=== PATIENT | female | born 1995 | race Caucasian/White ===

== ENCOUNTER 2020-07-02 09:22 | Outpatient (REF) | payer MEDICAID, SELFPAY ==
--- NOTE | 2020-07-02 09:15 | EMG_ITS ---
Right median and ulnar motor and sensory studies were performed. Right radial sensory study was performed and paraspinal muscles were tested. IMPRESSION: [id number] right median neuropathy across carpal tunnel. MD KRYSTLE Kwong/LATRICE / [id number]
== END 2020-07-02 09:23 | disposition home or self-care (01) ==
LOC: HO.NEURO 09:22
PROVIDERS: Visit Provider Internal Medicine
DX: M79.601 Pain in right arm (principal)
CPT/HCPCS: 95860; 95886; 95909

== ENCOUNTER → 2020-07-22 10:16 | Outpatient (BNVA) | payer OTHER, MEDICAID, SELFPAY | PROVIDERS: Visit Provider Orthopaedic Surgery ==

== ENCOUNTER 2020-07-30 09:03 | Day surgery (SDC) | payer MEDICAID, SELFPAY ==
[2020-07-29 09:48] VITALS: BMI 30.9
[2020-07-30] MEDS: Lidocaine HCl 2%/Epi 1:100,000 20 ML VIAL 10 ML INFILTRATI (10:44)
[2020-07-30 10:50] VITALS: BP 104/69; PULSE 74; RESP 16; TEMP 36.3; O2SAT 99
[2020-07-30 10:51] LABS: UPreg QC Valid YES; Urine Pregnancy NEGATIVE (NEGATIVE)
[2020-07-30 12:30] VITALS: BP 113/71; PULSE 76; RESP 16; TEMP 36.7; O2SAT 98
--- NOTE | 2020-07-30 12:33 | MHC.SHP ---
Pre-Procedural Eval Section B Chief Complaint: carpal tunnel syndrome,right Allergies: Allergies Allergy/AdvReac Type Severity Reaction Status Date / Time amoxicillin [AMOXICILLIN] Allergy Unknown RASH Verified 07/30/20 10:15 naproxen [NAPROXEN] Allergy Unknown FACIAL Verified 07/30/20 10:15 SWELLING prednisolone Allergy Unknown Unknown Verified 07/30/20 10:15 prednisone [PREDNISONE] Allergy Unknown HIVES Verified 07/30/20 10:15 Plan I have reviewed the history and physical and performed a pertinent physical examination on my patient. No changes have occurred unless specified.
--- NOTE | 2020-07-30 12:33 | W.PM.OPN ---
Operative Note Operative Note Date of Service: 07/30/20 Narrative: Preop diagnosis: 1. Right Carpal tunnel syndrome Postop diagnosis: 1. Right Carpal tunnel syndrome Procedure: 1. Right Carpal tunnel release Surgeon: Trisha Rubio MD Anesthesia: local block using 1% lidocaine with epinephrine Findings: Thickened transverse carpal ligament. EBL: Less than 5 mL Specimens: None Complications: None Disposition: Brought to recovery room in stable condition Plan: Follow-up for 7-10 days for wound check and suture removal Indications: The patient is 24 years old, with right carpal tunnel syndrome that has been unresponsive to nonoperative management. The risks and benefits of operative treatment including but not limited to risk of damage to blood vessels, nerves, tendons, infection, persistent pain, persistent symptoms, or possible need for additional surgery were discussed with the patient and the patient wishes to proceed with surgery. Procedure: Once consent was obtained a local block was performed using a combination of 1% lidocaine with epinephrine. The patient was then brought back to the operating suite and placed on the operative table in supine position. A tourniquet was applied to the proximal aspect of the right upper extremity and the limb was prepped and draped in a standard surgical fashion. Once assured that we had a good block, a 1.5 cm longitudinal incision was made centered over the right carpal tunnel. The incision was made through the skin to the subcutaneous tissues using a #15 blade. Dissection was made down to the level of the transverse carpal ligament with care being taken to protect the palmar cutaneous nerve. Once the transverse carpal ligament was clearly visualized, a longitudinal incision was made in the transverse carpal ligament 1st using a #15 blade, then using tenotomy scissors under direct visualization. Care was taken to look for and protect the motor branch of the median nerve when seen in this area. Once satisfied with our carpal tunnel release the wound was copiously irrigated with normal saline and hemostasis was obtained with a brief period of local pressure. The skin edges were reapproximated with some 5.0 nylon suture material and a sterile dressing was applied. The patient appears to have tolerated the procedure well and with no complications. All digits were well vascularized at the conclusion of the case.
== END 2020-07-30 13:00 | disposition home or self-care (01) ==
PROVIDERS: PCP Internal Medicine; Visit Provider Orthopaedic Surgery
PROC: (CPT 64721; principal; 2020-07-30 10:40)
DX: G56.01 Carpal tunnel syndrome, right upper limb (principal); J45.909 Unspecified asthma, uncomplicated; F31.9 Bipolar disorder, unspecified; Z88.1 Allergy status to other antibiotic agents; Z88.8 Allergy status to other drugs, medicaments and biological substances
CPT/HCPCS: 64721; 81025

== ENCOUNTER → 2020-08-12 10:17 | Outpatient (BNVA) | payer MEDICAID, SELFPAY | PROVIDERS: Visit Provider Orthopaedic Surgery | DX: G56.01 Carpal tunnel syndrome, right upper limb (principal) | CPT/HCPCS: 99212 ==

== ENCOUNTER 2020-10-19 07:33 | Emergency (ER) | payer MEDICAID, SELFPAY ==
--- NOTE | ~2020-10-19 | US_ITS ---
EXAMINATION: US PELVIS ULTRASOUND CLINICAL INFORMATION: Vaginal bleeding, lower quadrant pain. Age 24, LMP 3 weeks ago. COMPARISON: CT abdomen and pelvis with contrast 03/08/2018, pelvic ultrasound 06/10/2017 TECHNIQUE: Ultrasound of the pelvis is performed using both transabdominal and transvaginal transducers along with Doppler. Transvaginal imaging is performed due to inadequate visualization transabdominally. FINDINGS: Uterus: The uterus is anteverted and measures 5.9 x 3.2 x 3.6 cm. The double wall endometrial thickness is 2 mm. There is no fluid in uterine cavity. No intrauterine gestational sac. The uterine contours are smooth. No fibroid. No myometrial cyst. Adnexa: Both ovaries are visualized. There is no significant adnexal mass or pelvic ascites. There is normal bilateral adnexal color flow along with low resistance arterial waveforms and adnexal venous flow. No torsion. There is trace fluid cul-de-sac. No pelvic ascites. Right ovary measures 4.5 x 2.7 x 3.8 cm. There is a hemorrhagic cyst within the right ovary with lacelike internal stranding angiographic avascular echogenicity and overall size 3.2 x 1.9 x 2.7 cm. Left ovary measures 3.2 x 2.1 x 2.7 cm. US/US transvaginal IMPRESSION: 1. Uterus: Unremarkable. 2. Adnexa: Right intraovarian hemorrhagic cyst 3.2 x 1.9 x 2.7 cm. Trace pelvic fluid. No torsion. Unremarkable left ovary.
--- NOTE | ~2020-10-19 | US_ITS ---
EXAMINATION: US PELVIS ULTRASOUND CLINICAL INFORMATION: Vaginal bleeding, lower quadrant pain. Age 24, LMP 3 weeks ago. COMPARISON: CT abdomen and pelvis with contrast 03/08/2018, pelvic ultrasound 06/10/2017 TECHNIQUE: Ultrasound of the pelvis is performed using both transabdominal and transvaginal transducers along with Doppler. Transvaginal imaging is performed due to inadequate visualization transabdominally. FINDINGS: Uterus: The uterus is anteverted and measures 5.9 x 3.2 x 3.6 cm. The double wall endometrial thickness is 2 mm. There is no fluid in uterine cavity. No intrauterine gestational sac. The uterine contours are smooth. No fibroid. No myometrial cyst. Adnexa: Both ovaries are visualized. There is no significant adnexal mass or pelvic ascites. There is normal bilateral adnexal color flow along with low resistance arterial waveforms and adnexal venous flow. No torsion. There is trace fluid cul-de-sac. No pelvic ascites. Right ovary measures 4.5 x 2.7 x 3.8 cm. There is a hemorrhagic cyst within the right ovary with lacelike internal stranding angiographic avascular echogenicity and overall size 3.2 x 1.9 x 2.7 cm. Left ovary measures 3.2 x 2.1 x 2.7 cm. US/US pelvic ovarian doppler IMPRESSION: 1. Uterus: Unremarkable. 2. Adnexa: Right intraovarian hemorrhagic cyst 3.2 x 1.9 x 2.7 cm. Trace pelvic fluid. No torsion. Unremarkable left ovary.
--- NOTE | ~2020-10-19 | US_ITS ---
EXAMINATION: US PELVIS ULTRASOUND CLINICAL INFORMATION: Vaginal bleeding, lower quadrant pain. Age 24, LMP 3 weeks ago. COMPARISON: CT abdomen and pelvis with contrast 03/08/2018, pelvic ultrasound 06/10/2017 TECHNIQUE: Ultrasound of the pelvis is performed using both transabdominal and transvaginal transducers along with Doppler. Transvaginal imaging is performed due to inadequate visualization transabdominally. FINDINGS: Uterus: The uterus is anteverted and measures 5.9 x 3.2 x 3.6 cm. The double wall endometrial thickness is 2 mm. There is no fluid in uterine cavity. No intrauterine gestational sac. The uterine contours are smooth. No fibroid. No myometrial cyst. Adnexa: Both ovaries are visualized. There is no significant adnexal mass or pelvic ascites. There is normal bilateral adnexal color flow along with low resistance arterial waveforms and adnexal venous flow. No torsion. There is trace fluid cul-de-sac. No pelvic ascites. Right ovary measures 4.5 x 2.7 x 3.8 cm. There is a hemorrhagic cyst within the right ovary with lacelike internal stranding angiographic avascular echogenicity and overall size 3.2 x 1.9 x 2.7 cm. Left ovary measures 3.2 x 2.1 x 2.7 cm. US/US pelvic complete IMPRESSION: 1. Uterus: Unremarkable. 2. Adnexa: Right intraovarian hemorrhagic cyst 3.2 x 1.9 x 2.7 cm. Trace pelvic fluid. No torsion. Unremarkable left ovary.
[2020-10-19 07:36] VITALS: BP 131/68; PULSE 76; RESP 17; TEMP 36.6; O2SAT 99; BMI 25.4
--- NOTE | 2020-10-19 08:37 | ED.FEMALEGU ---
HPI - Female Genitourinary General Chief complaint: Vaginal Bleeding Stated complaint: vag bleed Time Seen by Provider: 10/19/20 08:06 Source: patient Mode of arrival: ambulatory History of Present Illness HPI Narrative: 24-year-old female presenting to the ED complaining of lower abdominal discomfort and dark vaginal bleeding since yesterday. Reports went to PCP few days ago and had negative urine . LMP 3 weeks ago. Also reports clotting, mild associated lightheadedness, admits to using about 9 tampons since last night. Denies nausea, vomiting, diarrhea, dysuria/hematuria, rectal bleeding, vaginal discharge. Is sexually active with 1 partner MD elicited complaint: vaginal bleeding Related Data Previous Rx's Medication Instructions Recorded hydrocodone-acetaminophen 1 tab PO Q4-6H PRN #5 tab 07/30/20 Allergies Allergy/AdvReac Type Severity Reaction Status Date / Time amoxicillin [AMOXICILLIN] Allergy Unknown RASH Verified 08/12/20 11:12 naproxen [NAPROXEN] Allergy Unknown FACIAL Verified 08/12/20 11:12 SWELLING prednisolone Allergy Unknown Unknown Verified 08/12/20 11:12 prednisone [PREDNISONE] Allergy Unknown HIVES Verified 08/12/20 11:12 Review of Systems Review of Systems: Constitutional: No Fever, No Chills Cardiovascular: No Chest Pain, No SOB Respiratory: No Cough, No Dyspnea Gastrointestinal: No Nausea, No Vomiting, No Diarrhea, No Constipation, + Abdominal pain Genitourinary: + irregular bleeding, No Dysuria, No Hematuria, No Flank Pain, no vaginal discharge Musculoskeletal: No joint pain, No Myalgias Skin: No Skin Lesions, No rash Neuro: No Weakness, No Numbness, + lightheadedness, No Headache Yes all other systems are reviewed and are negative [facility] Past Medical History Attestation statement: The following information was validated with the patient. Medical History (Updated 10/19/20 @ 11:45 by ALLEN Vasquez) Anxiety Asthma Bipolar 1 disorder PCOS (polycystic ovarian syndrome) Surgical History (Updated 08/12/20 @ 11:13 by ERWIN Dominguez) History of carpal tunnel release Family History Family History Father No problems noted. Mother No problems noted. Social History Social History (Reviewed 08/12/20 @ 11:12 by MARIAELENA Dominguez Alcohol intake: never Smoking Status: Never smoker Advance Directives: No Advance Directives Information Provided: No Current occupational status: unemployed Current occupation: right handed Physical Exam Vital Signs: Vital Signs: Last Vital Signs Temp 98.3 F 10/19/20 11:20 Pulse 70 10/19/20 11:20 Resp 18 10/19/20 11:20 BP 108/71 10/19/20 11:20 Pulse Ox 74 L 10/19/20 11:20 Body Mass Index 25.4 Const: General: cooperative, healthy appearing and comfortable Orientation/consciousness: patient oriented x3 Limitations: no limitations HENMT: Head: Yes normal to inspection Ears: hearing grossly normal bilaterally General nose exam: Normal external nose present Face and sinus: Yes normal facial exam Eyes: General: appearance normal, both eyes and all related structures EOM: EOMs intact bilaterally Neck: Neck: Yes normal visual inspection and Yes no meningeal signs Resp: Effort & Inspection: normal respiratory effort Cardio: Rate: regular rate GI: Inspection: Yes normal to inspection Palpation (GI): Soft to palpation, Tenderness to palpation present (GI) in the LLQ and suprapubicly, no guarding and not rigid : General: Yes no CVA tenderness Speculum Exam - Vagina: vaginal bleeding Speculum Exam - Cervix: Cervical os closed Bimanual exam- vagina & uterus: no cervical motion tenderness Bimanual Exam- Adnexa, other: tender (With adnexal fullness) on the right OB/external & speculum: vaginal bleeding Back/Spine/Pelvis: Back: no CVA tenderness Skin: Rashes: no rashes Wounds: no wounds Neuro: General: patient oriented x3 and no meningeal signs Gait exam (Neuro): Normal gait present Extrem: General: Yes normal to inspection Course Course Course Narrative: -no leukocytosis. H&H stable, UA with 1+ blood, U- negative US pelvic complete IMPRESSION: 1. Uterus: Unremarkable. 2. Adnexa: Right intraovarian hemorrhagic cyst 3.2 x 1.9 x 2.7 cm. Trace pelvic fluid. No torsion. Unremarkable left ovary. -1140--labs otherwise unremarkable, beta quant negative > discussed with patient including worrisome signs and symptoms and strict return precautions including close follow-up with OBGYN. She verbalized understanding feel safe for discharge home MDM - Female Genitourinary MDM Narrative Medical decision making narrative: 24-year-old female presenting to the ED complaining of lower abdominal discomfort and dark vaginal bleeding since yesterday. On exam VSS, in ED/nontoxic appearing, abdomen soft with LLQ/suprapubic tenderness to palpation, on pelvic exam mild vaginal bleeding noted without active hemorrhage and +right adnexal ttp. No CMT or apprecable masses. Concern for ovarian cyst/torsion vs ectopic vs TOA. Rule out STI. Lower concern for appendicitis or diverticulitis with other co-founding symptoms. Plan: Labs, UA, STI testing, pelvis ultrasound, reassess Lab Data Result diagrams: 10/19/20 08:54 10/19/20 10:48 Labs: Lab Results 10/19/20 10/19/20 10/19/20 Range/Units 08:54 08:54 08:54 WBC 9.0 (4.8-10.8) X10*3/uL RBC 4.38 (4.20-5.50) X10*6/uL Hgb 13.4 (12.0-16.0) g/dl Hct 40.2 (37-47) % MCV 91.8 (80-98) fL MCH 30.6 (27.0-33.0) pg MCHC 33.3 (31.0-35.0) g/dl RDW 12.4 (11.0-16.0) % Plt Count 253 (160-400) X10*3/uL MPV 11.5 (9.4-12.3) fL Immature Gran % (Auto) 0.2 (0.0-0.4) % Neut % (Auto) 71.4 (45-73) % Lymph % (Auto) 20.0 (20-40) % [place] % (Auto) 6.4 (2-11) % Eos % (Auto) 1.3 (0-4) % Baso % (Auto) 0.7 (0-2) % Lymph # (Auto) 1.8 (1.2-4.9) X10*3/uL [place] # (Auto) 0.6 (0.1-1.2) X10*3/uL Eos # (Auto) 0.1 (0.0-0.4) X10*3/uL Baso # (Auto) 0.1 (0.0-0.2) X10*3/uL Abs Immat Gran (auto) 0.02 (0.00-0.03) X10*3/uL Absolute Neuts (auto) 6.4 (2.0-8.3) X10*3/uL Absolute Nucleated RBC 0.000 (0.0-0.012) X10*3/uL Nucleated RBC % (auto) 0.0 (0.0-0.2) /100WBC PT 12.5 (10.8-13.0) SEC INR 1.1 (0.9-1.1) APTT 33.9 (24.1-38.0) SEC Sodium (135-145) mmol/L Potassium (3.3-5.1) mmol/L Chloride (96-108) mmol/L Carbon Dioxide (22-29) mmol/L Anion Gap (12-20) BUN (9-16) mg/dL Creatinine (0.5-1.4) mg/dL Estim Creat Clear Calc Estimated GFR Random Glucose (60-115) mg/dL Calcium (8.4-10.2) mg/dL Magnesium (1.6-2.6) mg/dL Total Bilirubin (0.0-1.0) mg/dL Direct Bilirubin (0.0-0.5) mg/dL AST (5-31) U/L ALT (0-31) U/L Alkaline Phosphatase (39-117) U/L Total Protein (6.5-8.0) g/dL Albumin (3.5-5.0) g/dL Lipase (8-78) U/L Beta HCG, Quant mIU/mL Urine Color YELLOW Urine Appearance CLEAR Urine pH 7.0 (5.0-8.0) Ur Specific [place] 1.015 (1.005-1.025) Urine Protein NEG (NEG-TRACE) MG/DL Urine Glucose (UA) NEG (NEG) MG/DL Urine Ketones NEG (NEG) MG/DL Urine Blood 1+ H (NEG) Urine Nitrite NEG (NEG) Ur Leukocyte Esterase NEG (NEG) Urine RBC 0-2 (0) /HPF Urine WBC 0-2 (0-4) /HPF Ur Squamous Epith Cells TRACE /LPF Ur Renal Epithelial Cell TRACE /LPF Urine Bacteria NONE /LPF Urine Test (NEGATIVE) 10/19/20 10/19/20 Range/Units 08:54 10:48 WBC (4.8-10.8) X10*3/uL RBC (4.20-5.50) X10*6/uL Hgb (12.0-16.0) g/dl Hct (37-47) % MCV (80-98) fL MCH (27.0-33.0) pg MCHC (31.0-35.0) g/dl RDW (11.0-16.0) % Plt Count (160-400) X10*3/uL MPV (9.4-12.3) fL Immature Gran % (Auto) (0.0-0.4) % Neut % (Auto) (45-73) % Lymph % (Auto) (20-40) % [place] % (Auto) (2-11) % Eos % (Auto) (0-4) % Baso % (Auto) (0-2) % Lymph # (Auto) (1.2-4.9) X10*3/uL [place] # (Auto) (0.1-1.2) X10*3/uL Eos # (Auto) (0.0-0.4) X10*3/uL Baso # (Auto) (0.0-0.2) X10*3/uL Abs Immat Gran (auto) (0.00-0.03) X10*3/uL Absolute Neuts (auto) (2.0-8.3) X10*3/uL Absolute Nucleated RBC (0.0-0.012) X10*3/uL Nucleated RBC % (auto) (0.0-0.2) /100WBC PT (10.8-13.0) SEC INR (0.9-1.1) APTT (24.1-38.0) SEC Sodium 142 (135-145) mmol/L Potassium 4.5 (3.3-5.1) mmol/L Chloride 110 H (96-108) mmol/L Carbon Dioxide 26 (22-29) mmol/L Anion Gap 11 L (12-20) BUN 9 (9-16) mg/dL Creatinine 0.75 (0.5-1.4) mg/dL Estim Creat Clear Calc 91.3 Estimated GFR > 60 Random Glucose 96 (60-115) mg/dL Calcium 8.8 (8.4-10.2) mg/dL Magnesium 2.0 (1.6-2.6) mg/dL Total Bilirubin 1.2 H (0.0-1.0) mg/dL Direct Bilirubin 0.3 (0.0-0.5) mg/dL AST 16 (5-31) U/L ALT 13 (0-31) U/L Alkaline Phosphatase 63 (39-117) U/L Total Protein 6.3 L (6.5-8.0) g/dL Albumin 4.1 (3.5-5.0) g/dL Lipase 14 (8-78) U/L Beta HCG, Quant < 2 mIU/mL Urine Color Urine Appearance Urine pH (5.0-8.0) Ur Specific [place] (1.005-1.025) Urine Protein (NEG-TRACE) MG/DL Urine Glucose (UA) (NEG) MG/DL Urine Ketones (NEG) MG/DL Urine Blood (NEG) Urine Nitrite (NEG) Ur Leukocyte Esterase (NEG) Urine RBC (0) /HPF Urine WBC (0-4) /HPF Ur Squamous Epith Cells /LPF Ur Renal Epithelial Cell /LPF Urine Bacteria /LPF Urine Test NEGATIVE (NEGATIVE) Discharge Plan Discharge Clinical Impression: Hemorrhagic cyst of right ovary Patient Disposition: Home, Self-Care Instructions: Ovarian Cyst (ED) Additional Instructions: Your ultrasound shows a right intra ovarian hemorrhagic cyst this is likely causing her symptoms You need to follow-up with OBGYN If your bleeding persists or worsens, abdominal pain persists or becomes unbearable, you develop fever, or persistent nausea/vomiting return to the ED immediately Prescriptions: No Action hydrocodone-acetaminophen 5-325 mg tablet 1 tab PO Q4-6H PRN (Reason: pain) Qty: 5 RF: 0 Referrals: Geovany Haney MD [Physician] - 2 days
[2020-10-19 09:04] LABS: MANUAL DIFF FLAG NO
[2020-10-19 09:06] LABS: Basophils Absolute Auto 0.1 X10*3/uL (0.0-0.2); Basophils Percent Auto 0.7 % (0-2); Eosinophils Absolute Auto 0.1 X10*3/uL (0.0-0.4); Eosinophils Percent Auto 1.3 % (0-4); Hematocrit 40.2 % (37-47); Hemoglobin 13.4 g/dl (12.0-16.0); Imm Gran Abs Auto 0.02 X10*3/uL (0.00-0.03); Imm Gran Pct Auto 0.2 % (0.0-0.4); Lymphocytes Absolute Auto 1.8 X10*3/uL (1.2-4.9); Mean Corpuscular HGB Conc 33.3 g/dl (31.0-35.0); Mean Corpuscular Hemoglobin 30.6 pg (27.0-33.0); Mean Corpuscular Volume 91.8 fL (80-98); Mean Platelet Volume 11.5 fL (9.4-12.3); Monocytes Absolute Auto 0.6 X10*3/uL (0.1-1.2); Monocytes Percent Auto 6.4 % (2-11); Neutrophils Absolute Auto 6.4 X10*3/uL (2.0-8.3); Neutrophils Percent Auto 71.4 % (45-73); Platelet Count 253 X10*3/uL (160-400); Red Blood Count 4.38 X10*6/uL (4.20-5.50); Red Cell Distribution Width 12.4 % (11.0-16.0)
[2020-10-19 09:10] LABS: Glucose Urine UA NEG (NEG); Leukocyte Esterase Urine NEG (NEG); Nitrite Urine NEG (NEG); Specific Gravity - Urine 1.015 (1.005-1.025); Urine Blood 1+ (NEG); Urine Ketones NEG (NEG); Urine Protein NEG (NEG-TRACE)
[2020-10-19 09:12] LABS: Appearance Urine CLEAR; Color Urine YELLOW; INTERNATIONAL NORM RATIO 1.1 (0.9-1.1); Prothrombin Time 12.5 SEC (10.8-13.0); UPreg QC Valid YES; Urine Pregnancy NEGATIVE (NEGATIVE)
[2020-10-19 09:14] LABS: Partial Thromboplastin Time 33.9 SEC (24.1-38.0)
[2020-10-19 09:17] LABS: RBC Urine 0-2 /HPF (0); Renal Epithelial Cells Urine TRACE /LPF; Squamous Epithelial Cell Urine TRACE /LPF; WBC Urine 0-2 /HPF (0-4)
[2020-10-19] MEDS: 0.9 % Sodium Chloride 1,000 ML 999 ML IVCONT (09:54)
[2020-10-19 10:44] VITALS: BP 121/88; PULSE 68; RESP 18; O2SAT 100
[2020-10-19 11:20] VITALS: BP 108/71; PULSE 70; RESP 18; TEMP 36.8; O2SAT 74
[2020-10-19] MEDS: Acetaminophen 325 MG TABLET 650 MG PO (11:24)
[2020-10-19 11:28] LABS: Alanine Aminotransferase 13 U/L (0-31); Albumin Level 4.1 g/dL (3.5-5.0); Alkaline Phosphatase 63 U/L (39-117); Anion Gap 11 (12-20); Aspartate Amino Transferase 16 U/L (5-31); Bilirubin Direct 0.3 mg/dL (0.0-0.5); Bilirubin Total 1.2 mg/dL (0.0-1.0); Blood Urea Nitrogen 9 mg/dL (9-16); Calcium 8.8 mg/dL (8.4-10.2); Carbon Dioxide 26 mmol/L (22-29); Chloride 110 mmol/L (96-108); Creatinine Clr Calc Pharmacy 91.3; Estimated Glomerular Filt Rate > 60; Glucose Random 96 mg/dL (60-115); Lipase 14 U/L (8-78); Potassium 4.5 mmol/L (3.3-5.1); Sodium 142 mmol/L (135-145); Total Protein 6.3 g/dL (6.5-8.0)
[2020-10-19 11:31] LABS: HCG Quantitative < 2 mIU/mL
[2020-10-19 12:38] LABS: CT PCR NOT DETECTED (Not Detect.); NG PCR NOT DETECTED (Not Detect.)
[2020-10-20 08:18] LABS: BV Int Neg Control Negative (Negative); BV Int Pos Control Positive (Positive)
== END 2020-10-19 11:55 | disposition home or self-care (01) ==
PROVIDERS: Physician Assistant; Emergency Provider Emergency Medicine
DX: N92.0 Excessive and frequent menstruation with regular cycle (principal); N83.8 Other noninflammatory disorders of ovary, fallopian tube and broad ligament; Z79.899 Other long term (current) drug therapy
CPT/HCPCS: 36415; 76830; 76856; 80048; 80076; 81001; 81025; 83690; 83735; 84702; 85025; 85610; 85730; 87480; 87491; 87510; 87591; 87660; 93975; 96360; 99284

== ENCOUNTER 2021-12-29 10:50 | Outpatient (REF) | payer MEDICAID, SELFPAY ==
--- NOTE | ~2021-12-29 | XR_ITS ---
EXAMINATION: XR KNEE, RIGHT CLINICAL INFORMATION: Right knee pain x8 days after fall COMPARISON: None TECHNIQUE: 3 views of the right knee. FINDINGS: Bones and soft tissues are normal. No fracture or joint effusion. Alignment is anatomic. Joint spaces are well maintained. No abnormal soft tissue calcification. XR/XR knee RT 2V IMPRESSION: Unremarkable right knee.
== END 2021-12-29 10:51 | disposition home or self-care (01) ==
LOC: HO.XRAY 10:50
PROVIDERS: PCP Internal Medicine; Visit Provider Internal Medicine
DX: M25.561 Pain in right knee (principal)
CPT/HCPCS: 73560

== ENCOUNTER 2022-10-02 20:47 | Emergency (ER) | payer MEDICAID, SELFPAY ==
--- NOTE | ~2022-10-02 | CT_ITS ---
EXAMINATION: CT FACIAL BONES WITH CONTRAST CLINICAL INFORMATION: Mastoid tenderness COMPARISON: None available. TECHNIQUE: Multidetector CT imaging of the facial bones was performed after the administration of 85 mL Omnipaque 350 intravenous contrast. Coronal and sagittal reformats created on an independent workstation were reviewed. This CT examination was performed using dose optimization techniques as appropriate, variously including the following: *Automated exposure control *Adjustment of mA and/or kV according to patient size (this includes techniques or standardized protocols for targeted exams where dose is matched to indication/reason for exam; i.e. extremities or head) *Use of iterative reconstruction technique DLP: 410 mGy-cm FINDINGS: No abnormal soft tissue enhancement. No abscesses. Parotid and submandibular glands are symmetric. Parapharyngeal spaces are symmetric. The external auditory canals and periauricular soft tissues unremarkable. Unremarkable CT imaging appearance of the mastoids. Mastoid air cells and middle ear cavities are clear. Minimal mucosal thickening in the bilateral maxillary sinuses. Remaining paranasal sinuses are clear. Orbits and globes unremarkable. Mandible and temporomandibular joints are normal. No acute maxillofacial fractures are seen. CT/CT facial bones w IV con IMPRESSION: * No etiology for the patient's mastoid tenderness is identified. * Unremarkable exam.
[2022-10-02 21:14] VITALS: BP 104/52; PULSE 82; RESP 16; TEMP 36.4; O2SAT 98; BMI 29.8
[2022-10-02 22:16] LABS: MANUAL DIFF FLAG NO
[2022-10-02 22:18] LABS: Basophils Absolute Auto 0.1 X10*3/uL (0.0-0.2); Eosinophils Absolute Auto 0.2 X10*3/uL (0.0-0.4); Eosinophils Percent Auto 3.3 % (0-4); Hematocrit 39.1 % (37.0-47.0); Hemoglobin 13.5 g/dl (12.0-16.0); Imm Gran Abs Auto 0.02 X10*3/uL (0.00-0.03); Imm Gran Pct Auto 0.3 % (0.0-0.4); Lymphocytes Absolute Auto 2.8 X10*3/uL (1.2-4.9); Lymphocytes Percent Auto 39.1 % (20-40); Mean Corpuscular HGB Conc 34.5 g/dl (31.0-35.0); Mean Corpuscular Hemoglobin 30.7 pg (27.0-33.0); Mean Corpuscular Volume 88.9 fL (80.0-98.0); Mean Platelet Volume 10.6 fL (9.4-12.3); Monocytes Absolute Auto 0.6 X10*3/uL (0.1-1.2); Monocytes Percent Auto 8.8 % (2-11); Neutrophils Absolute Auto 3.4 x10*3/uL (2.0-8.3); Neutrophils Percent Auto 47.5 % (45-73); Platelet Count 245 X10*3/uL (160-400); White Blood Count 7.2 X10*3/uL (4.8-10.8)
[2022-10-02 22:27] LABS: Strep A Nucleic Acid Negative (Negative)
[2022-10-02 22:31] LABS: COVID-19 Test Negative (Negative); IDNOW Serial# 16C4AD1C
[2022-10-02 22:32] LABS: Alanine Aminotransferase 13 U/L (0-31); Albumin Level 4.1 g/dL (3.5-5.0); Alkaline Phosphatase 55 U/L (39-117); Anion Gap 13 (12-20); Aspartate Amino Transferase 17 U/L (5-31); Bilirubin Total 0.4 mg/dL (0.0-1.0); Blood Urea Nitrogen 12 mg/dL (9-16); Calcium 9.2 mg/dL (8.4-10.2); Carbon Dioxide 27 mmol/L (22-29); Chloride 107 mmol/L (96-108); Creatinine Clr Calc Pharmacy 84.9; Estimated Glomerular Filt Rate > 60; Glucose Random 103 mg/dL (60-115); Potassium 4.1 mmol/L (3.3-5.1); Sodium 143 mmol/L (135-145); Total Protein 6.3 g/dL (6.5-8.0)
[2022-10-02 22:42] LABS: Influenza A Negative (Negative); Influenza B2 Negative (Negative)
--- NOTE | 2022-10-02 23:10 | ED_ITS ---
HPI - URI/Sore Throat General Chief Complaint: Ear Problems Stated Complaint: migraine, cough, unable to hear, covid swab Time Seen by Provider: 10/02/22 23:06 Source: patient Mode of arrival: ambulatory Limitations: no limitations History of Present Illness HPI Narrative: 26-year-old female presents with 1 week of fevers, nausea, headache, severe left ear pain, and upper respiratory symptoms. MD elicited complaint: fever, cough, sore throat, nasal congestion and other (Ear pain) Onset (ago): week(s) (1) Consistency: constant and progressively worsening Severity: severe Pain scale (0-10): 9 Description of mucous: clear and watery Able to tolerate fluids by mouth: Yes Exacerbating factors: swallowing, speaking and changing head position Relieving factors: nothing Associated symptoms: fever, chills, myalgias, headache, rhinorrhea, nasal congestion, sore throat, cough, nausea and ear pain Treatments prior to arrival: acetaminophen, ibuprofen and cold medicine Related Data Previous Rx's Medication Instructions Recorded hydrocodone 5 mg-acetaminophen 325 1 tab PO Q4-6H PRN pain #5 tabs 07/30/20 mg tablet azithromycin 500 mg tablet 500 mg PO DAILY 4 days #4 tabs 10/03/22 benzonatate 100 mg capsule 100 mg PO TID PRN cough #20 caps 10/03/22 doxycycline monohydrate 100 mg 100 mg PO BID 7 days #14 caps 10/03/22 capsule ondansetron 4 mg disintegrating 4 mg PO Q8H PRN nausea and 10/03/22 tablet vomiting #20 tabs Allergies Allergy/AdvReac Type Severity Reaction Status Date / Time amoxicillin [AMOXICILLIN] Allergy Unknown RASH Verified 10/02/22 21:17 naproxen [NAPROXEN] Allergy Unknown FACIAL Verified 10/02/22 21:17 SWELLING prednisolone Allergy Unknown Unknown Verified 10/02/22 21:17 prednisone [PREDNISONE] Allergy Unknown HIVES Verified 10/02/22 21:17 Review of Systems Review of Systems: Constitutional: Positive Fever, positive Chills ENT/Mouth: Positive Ear Pain, No Hoarseness, positive sore throat Eyes: No Eye Pain, No Swelling, No Redness, No Foreign Body Cardiovascular: No Chest Pain, No SOB Respiratory: Positive Cough, No Dyspnea Gastrointestinal: Positive Nausea, No Vomiting, No Diarrhea, No abdominal Pain Genitourinary: No Dysuria, No Hematuria Musculoskeletal: No joint pain, No Myalgias, No Joint Swelling Skin: No Skin lacerations, No rash Neuro: No Weakness, No Numbness, No Paresthesias, No Loss of Consciousness, No Dizziness, positive Headache Yes all other systems are reviewed and are negative [facility] Past Medical History Attestation statement: The following information was validated with the patient. Source: old records reviewed Medical History Anxiety Asthma Bipolar 1 disorder PCOS (polycystic ovarian syndrome) Surgical History History of carpal tunnel release Family History Family History Father No problems noted. Mother No problems noted. Social History Social History Alcohol intake: never Advance Directives: No Advance Directives Information Provided: No Current occupational status: unemployed Current occupation: right handed Physical Exam Vital Signs: Vital Signs: Last Vital Signs Temp 97.5 F 10/02/22 21:14 Pulse 82 10/02/22 21:14 Resp 16 10/02/22 21:14 BP 104/52 L 10/02/22 21:14 Pulse Ox 98 10/02/22 21:14 O2 Del Method Room Air 10/02/22 21:14 BMI result Body Mass Index 29.8 Appearance: Alert. Oriented X3. Moderate distress. Eyes: Pupils equal, round and reactive to light. EOMI. ENT: Pharynx erythematous with bilateral tonsillar exudates. Centor scale 3. Bilateral tympanic membranes erythematous, bulging, suppurative without perforation. Cerumen noted to left canal. Positive mastoid tenderness noted. Neck: Normal inspection. Neck supple. No cervical lymphadenopathy. No nu chal rigidity. No vertebral tenderness. CVS: Normal heart rate and rhythm. Pulses normal. Respiratory: No respiratory distress. Expiratory wheezing noted. Skin: Skin warm and dry. Normal skin color. Normal skin turgor. Extremities: Gait well-balanced well coordinated. Neuro: No motor deficit. No sensory deficit. Cranial nerves 2-12 intact Course Course Course Narrative: 26-year-old female presents with 1 week of upper respiratory symptoms, congestion, cough, fevers, chills, nausea, excruciating left ear pain with decreased hearing, sore throat. Has been taking [id number] medications with poor effect. Physical exam indicates bilateral otitis media, left ear canal has cerumen, considering her excruciating left ear pain and inability to completely visualize the left tympanic membrane, I am hesitant to irrigate the ear canal. Patient does have mastoid tenderness, will give pain management, antibiotics, and reassess. 23:56 patient has no relief with medications given. Plan of care is for IV morphine with CT scan of mastoids and facial bones. 01:40 CT scan of facial bones negative for acute findings. Will refer patient to ENT, give doxycycline, and azithromycin. Patient is anaphylactic to penicillins. Treating for otitis media, pharyngitis, and bronchitis. Patient also cannot take Naprosyn or ibuprofen products secondary to facial swelling. Patient does understand pain management and fever control with Tylenol 650 mg every 6 hours. Will give Zofran for nausea, and Tessalon for cough. Patient does understand that if symptoms worsen that she should present to the emergency department for evaluation. Patient verbalized understanding of discharge in structions. Verbalized understandings of signs and symptoms indicating need for emergent intervention. Medications Administered Discontinued Medications Generic Name Dose Route Start Last Admin Trade Name Northq PRN Reason Stop Dose Admin Acetaminophen 650 mg 10/02/22 23:13 10/03/22 00:26 Acetaminophen 325 Mg Tablet PO 10/02/22 23:14 650 mg ONCE ONE Administration Azithromycin 500 mg 10/02/22 23:12 10/03/22 00:26 Azithromycin 500 Mg Tablet PO 10/02/22 23:13 500 mg ONCE ONE Administration Doxycycline Monohydrate 100 mg 10/02/22 23:12 10/03/22 00:27 Doxycycline Monohydrate 100 Mg Capsule PO 10/02/22 23:13 100 mg ONCE ONE Administration Iohexol 85 ml 10/03/22 00:22 10/03/22 00:23 Iohexol 350 Mg/Ml 100 Ml Infus..Btl IV 10/03/22 00:23 85 ml ONCE ONE Administration Morphine Sulfate 4 mg 10/02/22 23:55 10/03/22 00:25 Morphine Sulfate 4 Mg/Ml Cartridge IVPUSH 10/02/22 23:56 4 mg ONCE ONE Administration Protocol Ondansetron HCl 4 mg 10/02/22 23:12 10/03/22 00:25 Ondansetron Odt 4 Mg Tab.Rapdis TRANSLINGU 10/02/22 23:13 4 mg ONCE ONE Administration Medical Decision Making Differential Diagnosis Differential Diagnoses: The differential diagnosis associated with the presentation includes Mastoiditis, tympanic perforation, inner ear abscess, pharyngitis, otitis media, COVID, influenza, RSV, bronchitis Admission/Observation Consideration of admission/observation: Escalation of care including admission/observation considered If CT facial bones show any acute findings, will consider transfer to a facility that has ENT Lab Data MDM Lab Attestation statement: I reviewed the patient's lab results. 10/02/22 22:08 10/02/22 22:08 Labs: Lab Results 10/02/22 10/02/22 10/02/22 Range/Units 22:08 22:08 22:08 WBC 7.2 (4.8-10.8) X10*3/uL RBC 4.40 (4.20-5.50) X10*6/uL Hgb 13.5 (12.0-16.0) g/dl Hct 39.1 (37.0-47.0) % MCV 88.9 (80.0-98.0) fL MCH 30.7 (27.0-33.0) pg MCHC 34.5 (31.0-35.0) g/dl RDW 12.0 (11.0-16.0) % Plt Count 245 (160-400) X10*3/uL MPV 10.6 (9.4-12.3) fL Immature Gran % (Auto) 0.3 (0.0-0.4) % Neut % (Auto) 47.5 (45-73) % Lymph % (Auto) 39.1 (20-40) % [place] % (Auto) 8.8 (2-11) % Eos % (Auto) 3.3 (0-4) % Baso % (Auto) 1.0 (0-2) % Lymph # (Auto) 2.8 (1.2-4.9) X10*3/uL [place] # (Auto) 0.6 (0.1-1.2) X10*3/uL Eos # (Auto) 0.2 (0.0-0.4) X10*3/uL Baso # (Auto) 0.1 (0.0-0.2) X10*3/uL Abs Immat Gran (auto) 0.02 (0.00-0.03) X10*3/uL Absolute Neuts (auto) 3.4 (2.0-8.3) x10*3/uL Absolute Nucleated RBC 0.000 (0.0-0.012) X10*3/uL Nucleated RBC % (auto) 0.0 (0.0-0.2) /100WBC Sodium 143 (135-145) mmol/L Potassium 4.1 (3.3-5.1) mmol/L Chloride 107 (96-108) mmol/L Carbon Dioxide 27 (22-29) mmol/L Anion Gap 13 (12-20) BUN 12 (9-16) mg/dL Creatinine 0.75 (0.5-1.4) mg/dL Estim Creat Clear Calc 84.9 Estimated GFR > 60 Random Glucose 103 (60-115) mg/dL Calcium 9.2 (8.4-10.2) mg/dL Total Bilirubin 0.4 (0.0-1.0) mg/dL AST 17 (5-31) U/L ALT 13 (0-31) U/L Alkaline Phosphatase 55 (39-117) U/L Total Protein 6.3 L (6.5-8.0) g/dL Albumin 4.1 (3.5-5.0) g/dL COVID-19 (JESUS) (Negative) COVID-19 Clin Com Influenza Type A (ANDREW) Negative (Negative) Influenza Type B (ANDREW) Negative (Negative) Influenza A & B Note See Note S. pyogenes GrpA ANDREW (Negative) 10/02/22 10/02/22 Range/Units 22:08 22:08 WBC (4.8-10.8) X10*3/uL RBC (4.20-5.50) X10*6/uL Hgb (12.0-16.0) g/dl Hct (37.0-47.0) % MCV (80.0-98.0) fL MCH (27.0-33.0) pg MCHC (31.0-35.0) g/dl RDW (11.0-16.0) % Plt Count (160-400) X10*3/uL MPV (9.4-12.3) fL Immature Gran % (Auto) (0.0-0.4) % Neut % (Auto) (45-73) % Lymph % (Auto) (20-40) % [place] % (Auto) (2-11) % Eos % (Auto) (0-4) % Baso % (Auto) (0-2) % Lymph # (Auto) (1.2-4.9) X10*3/uL [place] # (Auto) (0.1-1.2) X10*3/uL Eos # (Auto) (0.0-0.4) X10*3/uL Baso # (Auto) (0.0-0.2) X10*3/uL Abs Immat Gran (auto) (0.00-0.03) X10*3/uL Absolute Neuts (auto) (2.0-8.3) x10*3/uL Absolute Nucleated RBC (0.0-0.012) X10*3/uL Nucleated RBC % (auto) (0.0-0.2) /100WBC Sodium (135-145) mmol/L Potassium (3.3-5.1) mmol/L Chloride (96-108) mmol/L Carbon Dioxide (22-29) mmol/L Anion Gap (12-20) BUN (9-16) mg/dL Creatinine (0.5-1.4) mg/dL Estim Creat Clear Calc Estimated GFR Random Glucose (60-115) mg/dL Calcium (8.4-10.2) mg/dL Total Bilirubin (0.0-1.0) mg/dL AST (5-31) U/L ALT (0-31) U/L Alkaline Phosphatase (39-117) U/L Total Protein (6.5-8.0) g/dL Albumin (3.5-5.0) g/dL COVID-19 (JESUS) Negative (Negative) COVID-19 Clin Com See Note Influenza Type A (ANDREW) (Negative) Influenza Type B (ANDREW) (Negative) Influenza A & B Note S. pyogenes GrpA ANDREW Negative (Negative) Independent Interpretation I performed an independent interpretation of an: CT Scan Radiology Impression Discussion of test interpretation with radiology: I have reviewed the ra diologist's reading. Radiologist Impression: FINDINGS: No abnormal soft tissue enhancement. No abscesses. Parotid and submandibular glands are symmetric. Parapharyngeal spaces are symmetric. The external auditory canals and periauricular soft tissues unremarkable. Unremarkable CT imaging appearance of the mastoids. Mastoid air cells and middle ear cavities are clear. Minimal mucosal thickening in the bilateral maxillary sinuses. Remaining paranasal sinuses are clear. Orbits and globes unremarkable. Mandible and temporomandibular joints are normal. No acute maxillofacial fractures are seen. CT/CT facial bones w IV con IMPRESSION: *? No etiology for the patient's mastoid tenderness is identified. *? Unremarkable exam. External Record Review External record reviewed: Outpatient record and Prior outpatient labs Prescription Management I considered prescription management with: Pain Medication and Antibiotic Tylenol Discharge Plan Discharge Clinical Impression: Otitis media, Bronchitis, Pharyngitis Patient Disposition: Home, Self-Care Instructions: Pharyngitis (ED), Ear Infection (ED), Acute Bronchitis (ED) Additional Instructions: Your evaluated for upper respiratory symptoms. We are treating you for otitis media, pharyngitis, and bronchitis with azithromycin 500 mg for the next 4 days, doxycycline 100 mg twice a day for the next 7 days. Please take Tylenol 650 mg every 6 hours as needed for pain and fever management. For cough take Tessalon Perles every 8 hours as needed. Take Zofran 4 mg every 8 hours as needed for nausea and vomiting. This medication dissolved under the tongue. Drink plenty of fluids. Follow up with primary care, you may require an ENT referral. CT scan of facial bones are negative for mastoiditis, inner ear abscess or any other acute findings. Thank you for choosing this emergency department for evaluation. Please follow-up with primary care physician as needed. Return to the emergency department for any new, concerning, or worsening symptoms. Prescriptions: New doxycycline monohydrate 100 mg capsule 100 mg PO BID 7 Days Qty: 14 0RF azithromycin 500 mg tablet 500 mg PO DAILY 4 Days Qty: 4 0RF benzonatate 100 mg capsule 100 mg PO TID PRN (Reason: cough) Qty: 20 0RF ondansetron 4 mg tablet,disintegrating 4 mg PO Q8H PRN (Reason: nausea and vomiting) Qty: 20 0RF No Action hydrocodone-acetaminophen 5-325 mg tablet 1 tab PO Q4-6H PRN (Reason: pain) Qty: 5 0RF Referrals: [facility] [Provider Group] - 2 weeks (As needed for recurrent ear infections) Stand Alone Forms: Work/School Release
[2022-10-03] MEDS: iohexoL 350 MG/ML 100 ML INFUS..BTL 85 ML IV (00:23)
[2022-10-03] MEDS: Morphine Sulfate 4 MG/ML CARTRIDGE IVPUSH (00:25)
[2022-10-03] MEDS: Ondansetron ODT 4 MG TAB.RAPDIS TRANSLINGU (00:25)
[2022-10-03] MEDS: Acetaminophen 325 MG TABLET 650 MG PO (00:26)
[2022-10-03] MEDS: Azithromycin 500 MG TABLET PO (00:26)
[2022-10-03] MEDS: Doxycycline Monohydrate 100 MG CAPSULE PO (00:27)
== END 2022-10-03 02:30 | disposition home or self-care (01) ==
PROVIDERS: Emergency Provider Emergency Medicine Emergency Medical Services; PCP Internal Medicine
DX: J02.9 Acute pharyngitis, unspecified (principal); H66.92 Otitis media, unspecified, left ear; G43.909 Migraine, unspecified, not intractable, without status migrainosus; R05.9 Cough, unspecified; R50.9 Fever, unspecified; M79.10 Myalgia, unspecified site; Z20.822 Contact with and (suspected) exposure to COVID-19; Z20.828 Contact with and (suspected) exposure to other viral communicable diseases; Z79.899 Other long term (current) drug therapy
CPT/HCPCS: 36415; 70487; 80053; 85025; 87502; 87635; 87651; 96374; 99283; 99284; J2270; Q9967

== ENCOUNTER 2022-12-06 20:27 | Emergency (ER) | payer MEDICAID, SELFPAY ==
--- NOTE | 2022-12-06 | ECG_ITS ---
Test Reason : CX PAIN Blood Pressure : / mmHG Vent. Rate : 088 BPM Atrial Rate : 088 BPM P-R Int : 134 ms QRS Dur : 070 ms QT Int : 360 ms P-R-T Axes : 037 084 051 degrees QTc Int : 435 ms Normal sinus rhythm with sinus arrhythmia Normal ECG No previous ECGs available Referred By: Generic ED Physician Electronically Signed By:Bo Vega
--- NOTE | ~2022-12-06 | XR_ITS ---
EXAMINATION: XR CHEST CLINICAL INFORMATION: Wheezing COMPARISON: None available. TECHNIQUE: 2 views of the chest were obtained. FINDINGS: No significant abnormality is noted involving the heart, lungs, mediastinum, bony thorax or soft tissues. XR/XR chest 2V IMPRESSION: Unremarkable examination.
[2022-12-06 21:28] VITALS: BP 119/69; PULSE 85; TEMP 37.1; O2SAT 99; BMI 31.6
[2022-12-06 22:35] LABS: Influenza A PCR NEGATIVE (Negative); Influenza B PCR NEGATIVE (Negative); Resp Syncy Virus RNA Qual PCR NEGATIVE (Negative); SARS COV2 PCR INHOUSE NEGATIVE (Negative)
[2022-12-06 23:53] VITALS: BP 119/77; PULSE 94; RESP 18; TEMP 36.8; O2SAT 100
--- NOTE | 2022-12-06 23:55 | PC.NURSE ---
patient alert and oriented. continues to report numbness. No facial drop, neuro intact. Vital signs stable pt afebrile.
[2022-12-07 00:43] VITALS: BP 104/68; PULSE 90; RESP 18; TEMP 37.2; O2SAT 100
--- NOTE | 2022-12-07 00:44 | MHC.EDTECH ---
This tech assumed care of patient at 0030 patient is uncomfortable at this time, patient has pain, Vitals were obtained, and Rn was made aware, Call marques within reach
--- NOTE | 2022-12-07 00:51 | ED.GENADULT ---
HPI - General Adult General Chief complaint: General Medical Stated complaint: wheezing Time Seen by Provider: 12/07/22 00:43 Source: patient Mode of arrival: ambulatory Limitations: no limitations History of Present Illness HPI narrative: patient comes emergency room complaining of 4 days of cough. Denies hemoptysis, no shortness of breath. Patient reports subjective fever Related Data Previous Rx's Medication Instructions Recorded hydrocodone 5 mg-acetaminophen 325 1 tab PO Q4-6H PRN pain #5 tabs 07/30/20 mg tablet azithromycin 500 mg tablet 500 mg PO DAILY 4 days #4 tabs 10/03/22 benzonatate 100 mg capsule 100 mg PO TID PRN cough #20 caps 10/03/22 doxycycline monohydrate 100 mg 100 mg PO BID 7 days #14 caps 10/03/22 capsule ondansetron 4 mg disintegrating 4 mg PO Q8H PRN nausea and 10/03/22 tablet vomiting #20 tabs benzonatate 100 mg capsule 100 mg PO TID PRN cough #14 caps 12/07/22 Allergies Allergy/AdvReac Type Severity Reaction Status Date / Time amoxicillin [AMOXICILLIN] Allergy Unknown RASH Verified 10/02/22 21:17 naproxen [NAPROXEN] Allergy Unknown FACIAL Verified 10/02/22 21:17 SWELLING prednisolone Allergy Unknown Unknown Verified 10/02/22 21:17 prednisone [PREDNISONE] Allergy Unknown HIVES Verified 10/02/22 21:17 Review of Systems Review of Systems: Constitutional : No Weight loss, complaining of subjective Fever, No Chills, No Night Sweats, No Fatigue, No Malaise ENT/Mouth : No Hearing loss, No Ear Pain, No Nasal Congestion, No Sinus Pain, No Hoarseness, No sore throat, No Rhinorrhea, No Swallowing Difficulty Eyes: No Eye Pain, No Swelling, No Redness, No Foreign Body, No Discharge, No Vision Changes Cardiovascular : No Chest Pain, No SOB, No Dyspnea on Exertion, No Orthopnea, No Edema, No Palpitations Respiratory : complaining of cough with brownish sputum,No Wheezing, No Smoke Exposure, No Dyspnea Gastrointestinal : No Nausea, No Vomiting, No Diarrhea, No Constipation, No abdominal Pain, No Hematochezia, No Melena Genitourinary : no irregular bleeding, No Dysuria, No Urinary Frequency, No Hematuria, No Urinary Incontinence, No Urgency, No Flank Pain, No Urinary Flow Changes, No Hesitancy Musculoskeletal : No joint pain, No Myalgias, No Joint Swelling Skin : No Skin Lesions, No rash Neuro : No Weakness, No Numbness, No Paresthesias, No Loss of Consciousness, No Dizziness, No Headache Psych : No Anxiety/Panic, No Depression, No SI/HI/AH/VH, No Social Issues, Heme/Lymph: No Bruising, No Bleeding,No Lymphadenopathy Endocrine : No Polyuria, No Polydipsia, No Temperature Intolerance [facility] Past Medical History Medical History Anxiety Asthma Bipolar 1 disorder PCOS (polycystic ovarian syndrome) Surgical History History of carpal tunnel release Family History Family History Father No problems noted. Mother No problems noted. Social History Social History Alcohol intake: never Advance Directives: No Advance Directives Information Provided: No Current occupational status: unemployed Current occupation: right handed Physical Exam ED Vital Signs: Vital Signs - 24 hr 12/06/22 21:28 12/06/22 23:53 12/07/22 00:43 Temperature 98.7 F 98.3 F 98.9 F Pulse Rate 85 94 90 Respiratory Rate 18 18 Blood Pressure 119/69 119/77 104/68 Pulse Oximetry 99 100 100 Oxygen Delivery Method Room Air Room Air Room Air BMI result Body Mass Index 31.6 Const Other: Appearance: Alert. Oriented X3. No acute distress. Eyes: Pupils equal, round and reactive to light. ENT: Pharynx normal. Neck: Normal inspection. Neck supple. No lymph nodes noted. No crepitus CVS: Normal heart rate and rhythm. Pulses normal. Normal S1 and S2 Respiratory: No respiratory distress. Breath sounds normal. No Wheezing. No rales Abdomen: Soft and nontender. No rigidity. No distention. Skin: Skin warm and dry. Normal skin color. Normal skin turgor. Extremities: No lower extremity edema. No Lacerations. No Rash Neuro: Oriented X 3. No motor deficit. No sensory deficit. Moving all extremities. No slurred speech. CN 2 through 12 grossly intact Psych: calm, cooperative, normal affect Medical Decision Making Medical Decision Making MDM Narrative: - interpretation of chest x-ray: No pneumonia - patient likely has viral bronchitis. Antibiotic not indicated at this time - patient was given 1 dose of Tessalon in the emergency room Lab Data [facility] Lab Attestation statement: I reviewed the patient's lab results. Labs: Lab Results 12/06/22 Range/Units 21:45 Influenza Type A (PCR) NEGATIVE (Negative) Influenza Type B (PCR) NEGATIVE (Negative) RSV RNA Qual (PCR) NEGATIVE (Negative) SARS-CoV-2 RNA (RT-PCR) NEGATIVE (Negative) Radiology Impression Discussion of test interpretation with radiology: I have reviewed the radiologist's reading. Radiologist Impression: FINDINGS: No significant abnormality is noted involving the heart, lungs, mediastinum, bony thorax or soft tissues. XR/XR chest 2V IMPRESSION: Unremarkable examination. Discharge Plan Discharge Clinical Impression: Acute viral bronchitis Patient Disposition: Home, Self-Care Instructions: Acute Bronchitis (ED) Additional Instructions: Please follow-up with your primary care physician tomorrow. If you have any worsening or new symptoms, please return to the emergency room or call 911 Prescriptions: New benzonatate 100 mg capsule 100 mg PO TID PRN (Reason: cough) Qty: 14 0RF No Action hydrocodone-acetaminophen 5-325 mg tablet 1 tab PO Q4-6H PRN (Reason: pain) Qty: 5 0RF doxycycline monohydrate 100 mg capsule 100 mg PO BID 7 Days Qty: 14 0RF azithromycin 500 mg tablet 500 mg PO DAILY 4 Days Qty: 4 0RF benzonatate 100 mg capsule 100 mg PO TID PRN (Reason: cough) Qty: 20 0RF ondansetron 4 mg tablet,disintegrating 4 mg PO Q8H PRN (Reason: nausea and vomiting) Qty: 20 0RF
[2022-12-07] MEDS: Benzonatate 100 MG CAPSULE PO (01:05)
== END 2022-12-07 01:09 | disposition home or self-care (01) ==
PROVIDERS: Emergency Provider Emergency Medicine; PCP Internal Medicine
DX: J20.8 Acute bronchitis due to other specified organisms (principal); Z20.822 Contact with and (suspected) exposure to COVID-19; Z20.828 Contact with and (suspected) exposure to other viral communicable diseases
CPT/HCPCS: 0241U; 71046; 93005; 99283; 99284

== ENCOUNTER 2022-12-09 08:42 | Emergency (ER) | payer MEDICAID, SELFPAY ==
--- NOTE | ~2022-12-09 | XR_ITS ---
EXAMINATION: XR CHEST CLINICAL INFORMATION: Shortness of breath COMPARISON: 12/06/2022 TECHNIQUE: Frontal view of the chest was obtained. FINDINGS: No significant abnormality is noted involving the heart, lungs, mediastinum, bony thorax or soft tissues. XR/XR chest 1V IMPRESSION: Unremarkable examination.
[2022-12-09 08:49] VITALS: BP 128/64; BP 131/68; PULSE 100; PULSE 110; RESP 24; TEMP 36.3; O2SAT 100; BMI 32.2
--- NOTE | 2022-12-09 09:03 | PC.NURSE ---
patient a&ox3, pt c/o 03/12 rib pain, pts lungs in/ex wheezing- speaking in full sentences, dimished throughout, pt also c/o anxiety, electronic device monitor applied sinus tach on monitor, vss, cxr ordered, provider to see patient. call marques within reach, will continue to monitor.
[2022-12-09 09:05] VITALS: O2SAT 100
--- NOTE | 2022-12-09 09:10 | ED_ITS ---
HPI - SOB/Dyspnea General Chief Complaint: Upper Respiratory Symptoms Stated Complaint: Anxiety, SOB per EMS Time Seen by Provider: 12/09/22 08:59 Source: patient Mode of arrival: EMS Limitations: no limitations History of Present Illness HPI Narrative: She is a 27 yo female with a hx of asthma, anxiety, Bipolar 1 disorder who presents with shortness of breath, difficulty breathing for about a month. She reports her symptoms have worsen within the last six days. She states that she has been spitting up dark bown-black phlegm. She reports difficulty with sleeping, stating that she woke up throughout the night, and around 2am she felt her fingers and toes go numb. She states she then had multiple panic attacks throughout the rest of the night. She states that she had treated for pneumonia about 2 months ago. She reports chest pain. She denies abdominal pain, nausea, vomiting. MD elicited complaint: shortness of breath, chest pain and anxiety Pertinent past history: asthma and pneumonia Onset (ago): month(s) Context: recent illness Timing: intermittent Severity: moderate Exacerbating factors: coughing Relieving factors: oxygen, bronchodilators and upright position Known history of: asthma Associated symptoms: chest pain, wheezing, sputum production and chest congestion Related Data Previous Rx's Medication Instructions Recorded hydrocodone 5 mg-acetaminophen 325 1 tab PO Q4-6H PRN pain #5 tabs 07/30/ mg tablet azithromycin 500 mg tablet 500 mg PO DAILY 4 days #4 tabs 10/03/22 benzonatate 100 mg capsule 100 mg PO TID PRN cough #20 caps 10/03/22 doxycycline monohydrate 100 mg 100 mg PO BID 7 days #14 caps 10/03/22 capsule ondansetron 4 mg disintegrating 4 mg PO Q8H PRN nausea and 10/03/22 tablet vomiting #20 tabs benzonatate 100 mg capsule 100 mg PO TID PRN cough #14 caps 12/07/22 azithromycin 250 mg tablet See Rx Instructions PO .COMPLEX #6 12/09/22 (Zithromax Z-Yonatan) tabs hydrocodone-homatropine 5 mg-1.5 5 ml PO Q4-6H PRN cough #60 mL 12/09/22 mg/5 mL (5 mL) oral syrup (Hycodan) prednisone 20 mg tablet 40 mg PO DAILY #10 tabs 12/09/22 Allergies Allergy/AdvReac Type Severity Reaction Status Date / Time amoxicillin [AMOXICILLIN] Allergy Unknown RASH Verified 12/09/22 08:49 naproxen [NAPROXEN] Allergy Unknown FACIAL Verified 12/09/22 08:49 SWELLING prednisolone Allergy Unknown Unknown Verified 12/09/22 08:49 prednisone [PREDNISONE] Allergy Unknown HIVES Verified 12/09/22 08:49 Review of Systems Review of Systems: Yes all other systems are reviewed and are negative [facility] Past Medical History Medical History Anxiety Asthma Bipolar 1 disorder PCOS (polycystic ovarian syndrome) Surgical History History of carpal tunnel release Family History Family History Father No problems noted. Mother No problems noted. Social History Social History Alcohol intake: never Smoked in Last 30 Days: No Use of substances other than those prescribed or required for medical reasons: Yes Substance Use Type: Marijuana Substance Use Frequency: Daily Advance Directives: No Advance Directives Information Provided: No Patient : No Current occupational status: unemployed Current occupation: right handed Physical Exam Vital Signs: Vital Signs: Last Vital Signs Temp 97.4 F 12/09/22 08:49 Pulse 76 12/09/22 09:31 Resp 15 12/09/22 09:31 BP 131/68 12/09/22 08:49 Pulse Ox 100 12/09/22 09:05 O2 Del Method Room Air 12/09/22 09:05 BMI result Body Mass Index 32.2 Appearance: Alert. Oriented X3. No acute distress. Head: normocephalic, atraumatic. Eyes: Pupils equal, round and reactive to light. ENT: Pharynx normal. No tonsillar swelling or exudate. Neck: Normal inspection. Neck supple. CVS: Tachycardia with normal rhythm. Pulses normal. Respiratory: No respiratory distress. +cough with expiratory wheeze Abdomen: Soft and nontender. +BS x4 Skin: Skin warm and clammy. Normal skin color. Normal skin turgor. No rashes. Extremities: No lower extremity edema. No joint swelling. Neuro/psych: Oriented X 3. No motor deficit. No sensory deficit. CN II-XII intact. Normal speech and cognition. Course Reevaluation(s) Reevaluation #1: neb complete. patient reports feeling better. SpO2 100%. CXR clear. Time: 10:03 Medications Administered Discontinued Medications Generic Name Dose Route Start Last Admin Trade Name Northq PRN Reason Stop Dose Admin Albuterol Sulfate 5 mg 12/09/22 09:09 12/09/22 09:31 Albuterol Sulfate (0.083%) 2.5 Mg/3 Ml Vial.Neb INHALE 12/09/22 09:10 5 mg ONCE ONE Administration Guaifenesin/Codeine Phosphate 10 ml 12/09/22 09:12 12/09/22 10:02 Guaifen/Codeine Sf 200/20/10ml 10 Ml Liquid PO 12/09/22 09:13 10 ml ONCE ONE Administration Medical Decision Making Medical Decision Making [facility] Narrative: 27 yo female who presents with SOB for about one month. She was recently treated for pneumonia 2 months ago. Chest xray was normal. CBC and BMP was normal . She was treated with albuterol nebulizer and robutussin with codeine. She reports improvement. She symptoms and labs are suggestive of a viral etiology but given her sputum production, bacterial infection may be a possibility. Her chest xray and labs where normal. SPO2 100% on room air. Plan to treat acute bronchitis with prednisone antibiotics, and an antitussive Referral for pulmonology. Differential Diagnosis Differential Diagnoses: The differential diagnosis associated with the presentation includes Asthma exacerbation, upper respiratory virus, COVID-19, bronchitis, pneumonia Lab Data [facility] Lab Attestation statement: I reviewed the patient's lab results. Labs where normal. 12/09/22 09:39 12/09/22 09:39 Labs: Lab Results 12/09/22 12/09/22 Range/Units 09:39 09:39 WBC 7.5 (4.8-10.8) X10*3/uL RBC 4.56 (4.20-5.50) X10*6/uL Hgb 14.1 (12.0-16.0) g/dl Hct 40.3 (37.0-47.0) % MCV 88.4 (80.0-98.0) fL MCH 30.9 (27.0-33.0) pg MCHC 35.0 (31.0-35.0) g/dl RDW 11.9 (11.0-16.0) % Plt Count 240 (160-400) X10*3/uL MPV 11.1 (9.4-12.3) fL Immature Gran % (Auto) 0.4 (0.0-0.4) % Neut % (Auto) 64.2 (45-73) % Lymph % (Auto) 24.2 (20-40) % [place] % (Auto) 7.9 (2-11) % Eos % (Auto) 2.4 (0-4) % Baso % (Auto) 0.9 (0-2) % Lymph # (Auto) 1.8 (1.2-4.9) X10*3/uL [place] # (Auto) 0.6 (0.1-1.2) X10*3/uL Eos # (Auto) 0.2 (0.0-0.4) X10*3/uL Baso # (Auto) 0.1 (0.0-0.2) X10*3/uL Abs Immat Gran (auto) 0.03 (0.00-0.03) X10*3/uL Absolute Neuts (auto) 4.8 (2.0-8.3) x10*3/uL Absolute Nucleated RBC 0.000 (0.0-0.012) X10*3/uL Nucleated RBC % (auto) 0.0 (0.0-0.2) /100WBC Sodium 140 (135-145) mmol/L Potassium 4.2 (3.3-5.1) mmol/L Chloride 107 (96-108) mmol/L Carbon Dioxide 24 (22-29) mmol/L Anion Gap 13 (12-20) BUN 11 (9-16) mg/dL Creatinine 0.77 (0.5-1.4) mg/dL Estim Creat Clear Calc 85.3 Estimated GFR > 60 Random Glucose 92 (60-115) mg/dL Calcium 9.8 D (8.4-10.2) mg/dL Independent Interpretation I performed an independent interpretation of an: Plain X-Ray Interpretation: Xray was not suggestive of pneumonia, clear lungs. Radiology Impression Discussion of test interpretation with radiology: I have reviewed the radiologist's reading. Radiologist Impression: XR/XR chest 1V IMPRESSION: Unremarkable examination. Prescription Management I considered prescription management with: Antibiotic Chronic Conditions Patient?s care impacted by: Other (Asthma) Discharge Plan Discharge Clinical Impression: Bronchitis Patient Disposition: Home, Self-Care Instructions: Acute Bronchitis (ED) Additional Instructions: Your x-ray today was normal. Your lab workup today was normal. Take the prescribed medications as directed. Also recommend [id number] Mucinex to help thin the your secretions. Rest and drink plenty of fluids. Recommend following up with your primary care doctor as well as a pulmonary doctor - name and number below. Call for an appointment. If you develop new or worsening symptoms call 911 or come back to the ER for further evaluation. Prescriptions: New azithromycin [Zithromax Z-Yonatan] 250 mg tablet See Rx Instructions .ROUTE .COMPLEX Qty: 6 0RF Rx Instructions: take 500 mg today (day 1), then 250 mg for 4 days (days 2-5) prednisone 20 mg tablet 40 mg PO DAILY Qty: 10 0RF hydrocodone-homatropine [Hycodan] 5-1.5 mg/5 mL (5 mL) syrup 5 ml PO Q4-6H PRN (Reason: cough) Qty: 60 0RF Rx Instructions: Partial Fill upon patient request. No Action hydrocodone-acetaminophen 5-325 mg tablet 1 tab PO Q4-6H PRN (Reason: pain) Qty: 5 0RF doxycycline monohydrate 100 mg capsule 100 mg PO BID 7 Days Qty: 14 0RF azithromycin 500 mg tablet 500 mg PO DAILY 4 Days Qty: 4 0RF benzonatate 100 mg capsule 100 mg PO TID PRN (Reason: cough) Qty: 20 0RF ondansetron 4 mg tablet,disintegrating 4 mg PO Q8H PRN (Reason: nausea and vomiting) Qty: 20 0RF benzonatate 100 mg capsule 100 mg PO TID PRN (Reason: cough) Qty: 14 0RF Referrals: [facility] [Provider Group] (asthma)
[2022-12-09 09:31] VITALS: PULSE 76; RESP 15; O2SAT 97
[2022-12-09] MEDS: Albuterol Sulfate (0.083%) 2.5 MG/3 ML VIAL.NEB 5 MG INHALE (09:31)
[2022-12-09 09:43] LABS: MANUAL DIFF FLAG NO
[2022-12-09 09:44] LABS: Basophils Absolute Auto 0.1 X10*3/uL (0.0-0.2); Basophils Percent Auto 0.9 % (0-2); Eosinophils Absolute Auto 0.2 X10*3/uL (0.0-0.4); Eosinophils Percent Auto 2.4 % (0-4); Hematocrit 40.3 % (37.0-47.0); Hemoglobin 14.1 g/dl (12.0-16.0); Imm Gran Abs Auto 0.03 X10*3/uL (0.00-0.03); Imm Gran Pct Auto 0.4 % (0.0-0.4); Lymphocytes Absolute Auto 1.8 X10*3/uL (1.2-4.9); Lymphocytes Percent Auto 24.2 % (20-40); Mean Corpuscular Hemoglobin 30.9 pg (27.0-33.0); Mean Corpuscular Volume 88.4 fL (80.0-98.0); Mean Platelet Volume 11.1 fL (9.4-12.3); Monocytes Absolute Auto 0.6 X10*3/uL (0.1-1.2); Monocytes Percent Auto 7.9 % (2-11); Neutrophils Absolute Auto 4.8 x10*3/uL (2.0-8.3); Neutrophils Percent Auto 64.2 % (45-73); Platelet Count 240 X10*3/uL (160-400); Red Blood Count 4.56 X10*6/uL (4.20-5.50); Red Cell Distribution Width 11.9 % (11.0-16.0); White Blood Count 7.5 X10*3/uL (4.8-10.8)
[2022-12-09] MEDS: guaiFEN/Codeine SF 200/20/10ML 10 ML LIQUID PO (10:02)
[2022-12-09 10:03] LABS: Anion Gap 13 (12-20); Blood Urea Nitrogen 11 mg/dL (9-16); Calcium 9.8 mg/dL (8.4-10.2); Carbon Dioxide 24 mmol/L (22-29); Chloride 107 mmol/L (96-108); Creatinine Clr Calc Pharmacy 85.3; Estimated Glomerular Filt Rate > 60; Glucose Random 92 mg/dL (60-115); Potassium 4.2 mmol/L (3.3-5.1); Sodium 140 mmol/L (135-145)
--- NOTE | 2022-12-09 10:03 | PC.NURSE ---
pt medicated per order
[2022-12-09 10:37] VITALS: BP 106/73; PULSE 98; RESP 18; TEMP 36.8; O2SAT 98
--- NOTE | 2022-12-09 10:40 | PC.NURSE ---
patient a&ox3, lungs diminished throughout, pt previously had updraft by RT, pt speaking in full sentences, vitals stable, pt to be discharged with scripts
== END 2022-12-09 10:41 | disposition home or self-care (01) ==
PROVIDERS: Physician Assistant; Emergency Provider Internal Medicine; PCP Internal Medicine
DX: J40 Bronchitis, not specified as acute or chronic (principal); F41.1 Generalized anxiety disorder; F43.0 Acute stress reaction; Z79.899 Other long term (current) drug therapy
CPT/HCPCS: 36415; 71045; 80048; 85025; 94640; 99284; 99285

== ENCOUNTER 2023-04-05 09:45 | Emergency (ER) | payer MEDICAID, SELFPAY ==
[2023-04-05 10:21] VITALS: BP 117/76; PULSE 64; RESP 20; TEMP 36.6; O2SAT 100; BMI 27.9
--- NOTE | 2023-04-05 11:45 | ED_ITS ---
HPI - Back Pain/Injury General Chief Complaint: Back Pain/Injury Stated Complaint: burning sensation in shoulder blade into neck Time Seen by Provider: 04/05/23 10:30 Source: patient and RN notes reviewed Mode of arrival: ambulatory Limitations: no limitations History of Present Illness HPI Narrative: This is a 27-year-old female, with a hx of degenerative disc disease, presenting to the emergency department for evaluation of left shoulder blade pain and burning sensation x1 month. Patient denies any recent trauma or injury. 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 She is unsure what caused her to have the symptoms however states that since its onset she has had worsening pain. She states that the pain starts in her left shoulder radiated and radiates up into her neck and down her left arm. Patient denies any fevers, chills, chest pain, shortness breath, abdominal pain, nausea, vomiting or diarrhea. No other complaints or concerns at this time Pertinent past history: prior back pain Onset (ago): month(s) Timing: constant and progressively worsening Severity: moderate Quality: burning, tingling and spasming Location: thoracic spine Radiation: other ( left arm) Exacerbating factors: movement and lifting Relieving factors: immobilization and medication Associated symptoms: denies other symptoms Related Data Previous Rx's Medication Instructions Recorded hydrocodone 5 mg-acetaminophen 325 1 tab PO Q4-6H PRN pain #5 tabs 07/30/ mg tablet azithromycin 500 mg tablet 500 mg PO DAILY 4 days #4 tabs 10/03/22 benzonatate 100 mg capsule 100 mg PO TID PRN cough #20 caps 10/03/22 doxycycline monohydrate 100 mg 100 mg PO BID 7 days #14 caps 10/03/22 capsule ondansetron 4 mg disintegrating 4 mg PO Q8H PRN nausea and 10/03/22 tablet vomiting #20 tabs benzonatate 100 mg capsule 100 mg PO TID PRN cough #14 caps 12/07/22 azithromycin 250 mg tablet See Rx Instructions PO .COMPLEX #6 12/09/22 (Zithromax Z-Yonatan) tabs codeine 10 mg-guaifenesin 100 mg/5 10 ml PO Q4H PRN cough #60 mL 12/09/22 mL oral liquid hydrocodone-homatropine 5 mg-1.5 5 ml PO Q4-6H PRN cough #60 mL 12/09/22 mg/5 mL (5 mL) oral syrup (Hycodan) prednisone 20 mg tablet 40 mg (2 x 20 mg) PO DAILY #10 tabs 12/09/22 acetaminophen 500 mg tablet 500 mg PO Q6H PRN pain #30 tabs 04/05/23 (Tylenol Extra Strength) cyclobenzaprine 5 mg tablet 5 mg PO TID PRN muscle spasm #14 04/05/23 tabs ibuprofen 600 mg tablet 600 mg PO Q6H PRN pain #30 tabs 04/05/23 lidocaine 5 % topical patch 1 patch topical DAILY #30 ea 04/05/23 (Lidoderm) Allergies Allergy/AdvReac Type Severity Reaction Status Date / Time amoxicillin [AMOXICILLIN] Allergy Unknown RASH Verified 04/05/23 10:24 naproxen [NAPROXEN] Allergy Unknown FACIAL Verified 04/05/23 10:24 SWELLING prednisolone Allergy Unknown Unknown Verified 04/05/23 10:24 prednisone [PREDNISONE] Allergy Unknown HIVES Verified 04/05/23 10:24 Review of Systems Review of Systems: Yes all other systems are reviewed and are negative Constitutional: Constitutional: Reports as per [facility] Past Medical History Medical History Anxiety Asthma Bipolar 1 disorder PCOS (polycystic ovarian syndrome) Surgical History History of carpal tunnel release Family History Family History Father No problems noted. Mother No problems noted. Social History Social History Alcohol intake: never Substance Use Type: Marijuana Advance Directives: No Advance Directives Information Provided: No Current occupational status: unemployed Current occupation: right handed Physical Exam Vital Signs: Vital Signs: Last Vital Signs Temp 97.9 F 04/05/23 10:21 Pulse 64 04/05/23 10:21 Resp 20 04/05/23 10:21 BP 117/76 04/05/23 10:21 Pulse Ox 100 04/05/23 10:21 O2 Del Method Room Air 04/05/23 10:21 BMI result Body Mass Index 27.9 Const: General: cooperative, comfortable and no acute distress Orientation/consciousness: patient oriented x3 Limitations: no limitations HEENT: Head: Yes normal to inspection, Yes normocephalic and Yes atraumatic Ears: hearing grossly normal bilaterally General nose exam: Normal external nose present Face and sinus: Yes normal facial exam Mouth: Normal oral and palatal mucosa present, oropharynx normal and moist mucous membranes Throat: Yes posterior oropharynx normal Eyes: General: appearance normal, both eyes and all related structures Eyelids: Yes eyelids normal Conjunctivae: conjunctivae normal Sclerae: sclerae normal Pupils: Equal, round and reactive pupils present EOM: EOMs intact bilaterally Neck: Neck: Yes normal visual inspection, Yes full ROM and Yes no lymphadenopathy Lymphatic: no lymphadenopathy noted Chest: Chest palpation & inspection: normal inspection of the chest Resp: Effort & Inspection: normal respiratory effort and able to speak in complete sentences Auscultation: clear to auscultation bilaterally, no crackles, no rales, no rhonchi and no wheezes Cardio: Rate: regular rate Rhythm: regular rhythm Heart sounds: S1 normal heart sound present and S2 normal heart sound present GI: Inspection: Yes normal to inspection Back/Spine/Pelvis: Other: Left thoracic paraspinous muscle exquisitely tender to palpation. No midline T- spine tenderness. No cervical spine tenderness. Full range of motion of the neck. Skin: General skin exam: no rashes or lesions noted Trauma: no lacerations or abrasions Wounds: no wounds Neuro: General: patient oriented x3 and moves all extremities Cranial nerves: Yes Equal, round and reactive pupils present Extrem: Other: Range of motion of the left shoulder is limited secondary to exacerbating pain in her left thoracic region. Radial pulses 2+. Capillary refill less than 2 seconds. Distal sensation circulation intact. General: Yes normal to inspection Right upper extremity: normal to inspection Left upper extremity: normal to inspection Right lower extremity: normal to inspection Left lower extremity: normal to inspection Medical Decision Making Medical Decision Making MDM Narrative: 27-year-old female presenting to the emergency department for evaluation of left thoracic regional pain x1 month. No recent trauma or injury. 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 She states that since its onset she has had worsening pain and now has pain or shooting down her left arm. On arrival, vital signs within normal limits. Patient is nontoxic appearing. Differential diagnoses include muscle strain, cervical radiculopathy, spasm. No history of IV drug abuse to suggest epidural abscess. Less likely herpes zoster given presentation and overlying multiple dermatomal distribution. Patient has not taken any medications today. She has tolerated NSAIDs well before in the past. Will medicate with Toradol 30 mg IM. Will discharge on muscle relaxants, oxycodone for severe pain only, in Tylenol and Motrin. She is unable to take prednisone given high reaction in the past. Therefore a narcotic I think is reasonable. Educated that this medication is addictive, can cause drowsiness, and we cannot refill this medication from the emergency room. Patient understands and agrees with plan. Patient stable for discharge. Differential Diagnosis Differential Diagnoses: The differential diagnosis associated with the presentation includes See above Radiology Impression Discussion of test interpretation with radiology: I have reviewed the radiologist's reading. Discharge Plan Discharge Clinical Impression: Thoracic back pain, Muscle spasm Patient Disposition: Home, Self-Care Instructions: Thoracic Pain (ED) Additional Instructions: Your symptoms are likely due to muscle spasms, please take prescribed medication as directed. Flexeril as a muscle relaxant, please take 3 times a day as needed for your symptoms. This may cause drowsiness, do not drink alcohol or drive while taking this medication. Take ibuprofen or Tylenol as directed as needed for pain. Gentle massage, and stretching can also help with your pain. Please follow-up with your primary care physician regarding this visit. If any new or worsening symptoms occur including but not limited to chest pain, shortness of breath, please return for re-evaluation. Prescriptions: New ibuprofen 600 mg tablet 600 mg PO Q6H PRN (Reason: pain) Qty: 30 0RF acetaminophen [Tylenol Extra Strength] 500 mg tablet 500 mg PO Q6H PRN (Reason: pain) Qty: 30 0RF cyclobenzaprine 5 mg tablet 5 mg PO TID PRN (Reason: muscle spasm) Qty: 14 0RF lidocaine [Lidoderm] 5 % adhesive patch,medicated 1 patch topical DAILY Qty: 30 0RF Rx Instructions: leave on most painful area for up to 12 hrs No Action hydrocodone-acetaminophen 5-325 mg tablet 1 tab PO Q4-6H PRN (Reason: pain) Qty: 5 0RF doxycycline monohydrate 100 mg capsule 100 mg PO BID 7 Days Qty: 14 0RF azithromycin 500 mg tablet 500 mg PO DAILY 4 Days Qty: 4 0RF benzonatate 100 mg capsule 100 mg PO TID PRN (Reason: cough) Qty: 20 0RF ondansetron 4 mg tablet,disintegrating 4 mg PO Q8H PRN (Reason: nausea and vomiting) Qty: 20 0RF benzonatate 100 mg capsule 100 mg PO TID PRN (Reason: cough) Qty: 14 0RF azithromycin [Zithromax Z-Yonatan] 250 mg tablet See Rx Instructions .ROUTE .COMPLEX Qty: 6 0RF Rx Instructions: take 500 mg today (day 1), then 250 mg for 4 days (days 2-5) prednisone 20 mg tablet 40 mg PO DAILY Qty: 10 0RF hydrocodone-homatropine [Hycodan] 5-1.5 mg/5 mL (5 mL) syrup 5 ml PO Q4-6H PRN (Reason: cough) Qty: 60 0RF Rx Instructions: Partial Fill upon patient request. codeine-guaifenesin 10-100 mg/5 mL liquid 10 ml PO Q4H PRN (Reason: cough) Qty: 60 0RF
[2023-04-05 12:05] VITALS: BP 109/76; PULSE 64; RESP 18; O2SAT 98
[2023-04-05] MEDS: Ketorolac Tromethamine 30 MG/ML VIAL IM (12:11)
--- NOTE | 2023-04-05 12:16 | PC.NURSE ---
aox4. calm, coop. per tanmay bullard pt to stay to eval pain s/p toradol. no resp distress. sitting up in bed
--- NOTE | 2023-04-05 12:22 | PC.NURSE ---
aox4. calm, coop. shoulder pain. no respiratory distress.
[2023-04-05 12:23] VITALS: RESP 18; TEMP 37.1
== END 2023-04-05 13:09 | disposition home or self-care (01) ==
PROVIDERS: Emergency Provider Emergency Medicine
DX: M54.50 Low back pain, unspecified (principal); M54.6 Pain in thoracic spine; M25.512 Pain in left shoulder; Z79.899 Other long term (current) drug therapy
CPT/HCPCS: 96372; 99284; J1885

== ENCOUNTER 2025-06-21 18:57 | Emergency (ER) | payer MEDICAID, SELFPAY ==
--- NOTE | ~2025-06-21 | XR_ITS ---
CLINICAL HISTORY: fall, pain 4 view, chest and right ribs Comparison: CR/SR - XR CHEST 2 VIEWS - 12/09/2022 09:06 AM EDT Findings: Tissue marker is visualized in the right chest wall. Bones intact. No dislocations. Mild thoracic dextroscoliosis. The lungs are unremarkable. IMPRESSION: No displaced rib fractures. No pneumothorax. This document has been electronically signed by: Chen Perrin MD on 06/21/2025 20:31:33
--- NOTE | 2025-06-21 19:10 | ED_ITS ---
HPI - Back Pain/Injury General Chief Complaint: Back Pain/Injury Stated Complaint: sharp pain down back Time Seen by Provider: 06/21/25 22:00 Source: patient Mode of arrival: ambulatory Limitations: no limitations History of Present Illness ED Provider: Dr. López HPI Narrative: This is a 29-year-old female presented hospital today for evaluation of right scapular pain. Patient stated that this started last night. She was bending over to get her shoes when she stood back up the pain worsened. She describes it as a spasm. She does have history of scoliosis in the past. Patient stated that she might have hit her back on an end table there. Patient stated that this feels like a muscle spasm. It comes and go.No abdominal tenderness no dysuria no hematuria. Related Data Previous Rx's ?Medication ?Instructions ?Recorded hydrocodone 5 mg-acetaminophen 325 1 tab PO Q4-6H PRN pain #5 tabs 07/30/ mg tablet azithromycin 500 mg tablet 500 mg PO DAILY 4 days #4 t abs 10/03/22 benzonatate 100 mg capsule 100 mg PO TID PRN cough #20 caps 10/03/22 doxycycline monohydrate 100 mg 100 mg PO BID 7 days #1 4 caps 10/03/22 capsule ondansetron 4 mg disintegrating 4 mg PO Q8H PRN nausea and 10/03/22 tablet vomiting #20 tabs benzonatate 100 mg capsule 100 mg PO TID PRN cough #14 caps 12/07/22 azithromycin 250 mg tablet See Rx Instructions PO .COM PLEX #6 12/09/22 (Zithromax Z-Yonatan) tabs codeine 10 mg-guaifenesin 100 mg/5 10 ml PO Q4H PRN co ugh #60 mL 12/09/22 mL oral liquid hydrocodone-homatropine 5 mg-1.5 5 ml PO Q4-6H PRN cou gh #60 mL 12/09/22 mg/5 mL (5 mL) oral solution (Hycodan) prednisone 20 mg tablet 40 mg (2 x 20 mg) PO DAILY # 10 tabs 12/09/22 acetaminophen 500 mg tablet 500 mg PO Q6H PRN pain #30 tabs 04/05/23 (Tylenol Extra Strength) cyclobenzaprine 5 mg tablet 5 mg PO TID PRN muscle spa sm #14 04/05/23 tabs ibuprofen 600 mg tablet 600 mg PO Q6H PRN pain #30 t abs 04/05/23 lidocaine 5 % topical patch 1 patch topical DAILY #30 ea 04/05/23 (Lidoderm) acetaminophen 500 mg tablet 1,000 mg (2 x 500 mg) PO Q 8H 10 06/21/25 days #60 tabs cyclobenzaprine 10 mg tablet 10 mg PO TID PRN muscle s pasm #20 06/21/25 tabs lidocaine 5 % topical patch 1 patch topical DAILY #15 ea 06/21/25 nystatin 100,000 unit/gram topical 1 appl topical BID #15 grams 06/21/25 cream Allergies Allergy/AdvReac Type Severity Reaction Status Date / Time amoxicillin (AMOXICILLIN) Allergy Unknown RASH Verified 06/21/25 19:13 naproxen (NAPROXEN) Allergy Unknown FACIAL Verified 06/21/25 19:13 SWELLING prednisolone Allergy Unknown Unknown Verified 06/21/25 19:13 prednisone (PREDNISONE) Allergy Unknown HIVES Verified 06/21/25 19:13 Review of Systems Review of Systems: Review of systems [facility] Past Medical History [facility] Narrative: Medical history as mentioned in HPI Medical History Anxiety Asthma Bipolar 1 disorder PCOS (polycystic ovarian syndrome) Surgical History History of carpal tunnel release Family History Family History Father No problems noted. Mother No problems noted. Social History Social History Alcohol intake: never Substance Use Type: Marijuana Advance Directives: No Advance Directives Information Provided: No Do you have a plan to hurt others: No Plan Current occupational status: unemployed Current occupation: right handed Physical Exam Exam: Exam: General: Pleasant, no distress, interacting appropriately Head: Normacephalic, atraumatic ENT: oral mucosa moist, neck supple, no tracheal deviation Cardiovascular: regular rate, regular rhythm, no murmurs, rubbing, gallops Respiratory: CTAB, no wheeze, rales, rhonchi Gastrointestinal: Soft, non distended, non tender, non guarding MSK: Reproducible pain on right scapula. 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 Deferred additional HPI, ROS, PE to primary provi heidi. 29 yo female with history of bipolar disorder, anxiety, PCOS, asthma here with complaints of right posterior rib pain with muscle spasm after slip and fall last night. Will check x-rays VSS Medical Decision Making Medical Decision Making [facility] Narrative: 29-year-old female presented hospital today for right posterior scapular pain that appears to be muscular in nature. Chest x-ray did not show any signs of rib fracture no sign of pneumothorax. We will plan to give patient a dose of Flexeril here. Lidocaine patch. And a dose of Tylenol. I did offer Valium for the patient for muscle relaxant however patient has kindly defers it as she does have history of addiction in the past. I did perform a bedside ultrasound. No sign of hydronephrosis on the right kidney or the left kidneys. No signs of cholecystitis on ultrasound as well. I do not think her right scapular pain is from gallbladder kidney stones. Patient will be discharged home with Flexeril, Tylenol lidocaine patch for her muscle spasm. Encouraged her to follow up with primary care doctor all questions were addressed. Differential Diagnosis Differential Diagnoses: The differential diagnosis associated with the presentation includes Nephrolithiasis, cholecystitis, muscular spasm, pneumothorax Independent Interpretation I performed an independent interpretation of an: Plain X-Ray and Ultrasound Radiology Impression Discussion of test interpretation with radiology: I have reviewed the radiologist's reading. Discharge Plan Discharge Clinical Impression: Pain in scapula Patient Disposition: Home, Self-Care Additional Instructions: Follow up wit your primary care doctor for your scapular pain. Ultrasound did not who any signs of kidney stone. Take the medicine as instructed. Prescriptions: New nystatin 100,000 unit/gram cream 1 appl topical BID Qty: 15 0RF cyclobenzaprine 10 mg tablet 10 mg PO TID PRN (Reason: muscle spasm) Qty: 20 0RF acetaminophen 500 mg tablet 1,000 mg PO Q8H 10 Days Qty: 60 0RF lidocaine 5 % adhesive patch,medicated 1 patch topical DAILY Qty: 15 0RF Rx Instructions: leave on most painful area for up to 12 hrs No Action hydrocodone-acetaminophen 5-325 mg tablet 1 tab PO Q4-6H PRN (Reason: pain) Qty: 5 0RF doxycycline monohydrate 100 mg capsule 100 mg PO BID 7 Days Qty: 14 0RF azithromycin 500 mg tablet 500 mg PO DAILY 4 Days Qty: 4 0RF benzonatate 100 mg capsule 100 mg PO TID PRN (Reason: cough) Qty: 20 0RF ondansetron 4 mg tablet,disintegrating 4 mg PO Q8H PRN (Reason: nausea and vomiting) Qty: 20 0RF benzonatate 100 mg capsule 100 mg PO TID PRN (Reason: cough) Qty: 14 0RF azithromycin [Zithromax Z-Yonatan] 250 mg tablet See Rx Instructions .ROUTE .COMPLEX Qty: 6 0RF Rx Instructions: take 500 mg today (day 1), then 250 mg for 4 days (days 2-5) prednisone 20 mg tablet 40 mg PO DAILY Qty: 10 0RF hydrocodone-homatropine [Hycodan] 5-1.5 mg/5 mL (5 mL) syrup 5 ml PO Q4-6H PRN (Reason: cough) Qty: 60 0RF Rx Instructions: Partial Fill upon patient request. codeine-guaifenesin 10-100 mg/5 mL liquid 10 ml PO Q4H PRN (Reason: cough) Qty: 60 0RF ibuprofen 600 mg tablet 600 mg PO Q6H PRN (Reason: pain) Qty: 30 0RF acetaminophen [Tylenol Extra Strength] 500 mg tablet 500 mg PO Q6H PRN (Reason: pain) Qty: 30 0RF cyclobenzaprine 5 mg tablet 5 mg PO TID PRN (Reason: muscle spasm) Qty: 14 0RF lidocaine [Lidoderm] 5 % adhesive patch,medicated 1 patch topical DAILY Qty: 30 0RF Rx Instructions: leave on most painful area for up to 12 hrs Print Language: Yi
[2025-06-21 19:11] VITALS: BP 131/60; PULSE 87; RESP 18; TEMP 36.6; O2SAT 99; BMI 33.1
--- OUTSIDE RECORDS SUMMARY | 2025-06-21 21:22 | XMS_ITS | Clinical Summary ---
Author Organization [facility] Address [address] [place] [address] Phone Care Team Providers Care Vocational Evaluator Name Role Phone Physician, Pcp Unknown Primary Care Provider Chrissy vailable Allergies Active Allergy Reactions Criticality Noted Date Comments Amoxicillin Rash Low 12/02/2016 Prednisone High 05/30/2017 Other reaction(s): Anaphylaxis Medications ibuprofen (ADVIL,MOTRIN) 100 mg/5 mL suspension Take 20 mL (400 mg total) by mouth every 8 (eight) hours. 120 mL 07/04/2024 Active Surgical History Surgery Date Site/Laterality Comments OTHER SURGICAL HISTORY PROCEDURE: DENIES PREVIOUS SURGERY Medical History Medical History Date Comments Tic disorder, unspecified DX:Tic disorder, unspecified Astigmatism, unspecified DX:Asti gmatism, unspecified Other and unspecified noninf ectious gastroenteritis and colitis(558.9) DX:Other and unspec ified noninfectious gastroenteritis and colitis(558.9) Unspecified family circumstance DX:Unspecified family circumstance Contact dermatitis and other eczema, due to unspecified cause DX:Contact dermatitis and ot her eczema, due to unspecified cause PCOS (polycystic ovarian syndrome) 02/02/2009 DX:PCOS (polycystic ovarian syndrome) SOB (shortness of breath) 02/02/2009 DX:SOB (shortness of breath) Attention deficit disorder w ith hyperactivity(314.01) 08/11/2011 DX:Attention deficit disorde r with hyperactivity(314.01) Post traumatic stress disorder (PTSD) 08/11/2011 DX:Post traumatic stress disorder (PTSD) Family History Medical History Relation Name Comments Alcohol/Drug Maternal Grandfather Other: heart Maternal Grandfather Eczema Maternal Grandmother Asthma Other Diabetes Other mggm Blindness Neg Hx Cataracts Neg Hx Glaucoma Neg Hx Macular degeneration Neg Hx Strabismus Neg Hx Relation Name Status Comments Brother Alive 09/1999 sven Father Alive 1970 Maternal Grandfather Maternal Grandmother Mother Alive 1974 [employer] Other Social History Tobacco Use Types Packs/Day Years Used Date Smoking Tobacco: Never Smokeless Tobacco: Never Alcohol Use Standard Drinks/Week Comments No 0 (1 standard drink = 0.6 oz pur e alcohol) Comments Unknown Sex and Gender Information Value Date Recorded Sex Assigned at Female 07/03/2024 10:24 PM EST Legal Sex Female 4:48 AM EST Gender Identity Female 07/03/2024 10:24 PM EST Sexual Orientation Not on file Last Filed Vital Signs Vital Sign Reading Time Taken Comments Blood Pressure 115/79 02/09/2025 4:47 PM EDT Pulse 77 02/09/2025 4:47 PM EDT Temperature 36.7 C (98.1 F) 02/09/2025 4:47 PM EDT Respiratory Rate 16 02/09/2025 4:47 PM EDT Oxygen Saturation 100% 02/09/2025 4:47 PM EDT Inhaled Oxygen Concentration - - Weight 67.1 kg (148 lb) 02/09/2025 4:47 PM EDT Height 144.8 cm (4' 9 ) 02/09/2025 4:47 PM EDT Body Mass Index 32.03 02/09/2025 4:47 PM EDT Plan of Treatment Health Maintenance Due Date Last Done Comments Hepatitis B Vaccines (3 of 3 - 3-dose series) 11/22/1994 09/27/1994, 1993, 1993 Pneumococcal Vaccine: Pediatrics (0 to 5 Years) and At-Risk Patients (6 to 49 Years) (1 of 2 - PCV) 2012 Cervical Cancer Screening: Pap Smear 2014 Hepatitis C Screening 04/18/2024 Social Influencers of Health Screening 04/18/2024 Depression Screening 07/03/2024 COVID-19 Vaccine ( - season) 2025 Influenza Vaccine (#1) 2025 2, 05/16/2009, 03/20/2009, Additional history exists DTaP,Tdap,and Td Vaccines (9 - Td or Tdap) 03/31/2027 03/31/2017, 03/20/2009, 11/25/2004, Additional history exists RSV Immunization Adult Patients (1 - 1-dose 75+ series) 2068 HIB Vaccines Completed 02/14/1995, 01/31, 09/27/1994, Additional history exists IPV Vaccines Completed 08/25/1998, 01/31, 09/27/1994, Additional history exists MMR Vaccines Completed 08/25/1998, 02/14/1995 Meningococcal ACWY Vaccine Aged Out 05/01/2008 N o longer eligible based on patient's age to complete this topic Varicella Vaccines Completed 05/01/2008, 1995 HPV Vaccines Completed 02/05/2009, 12/2008, 05/01/2008 HIV Screening Completed 02/09/2025, 07/14/2021 Hepatitis A Vaccines Aged Out No long er eligible based on patient's age to complete this topic Meningococcal B Vaccine Aged Out No l onger eligible based on patient's age to complete this topic RSV Immunization Patients Under 20 months Aged Out No longer eligible based on patient's age to complete this topic Procedures Procedure Name Priority Date/Time Associated Diagnosis Comments HIV 1, 2 ANTIBODY, P24 ANTIGEN WITH REFLEX TO DIFFERENTIATION STAT 02/09/2025 5:16 PM EDT from Last 3 Months or Most Recently Relevant to Health Maintenance Results * HIV 1,2 antibody, p24 antigen with reflex to differentiation (02/09/2025 5:16 PM EDT) HIV Combo AB/AG Negative Negative LAB CHEMISTRY METHOD 02/09/2025 6:43 PM EDT [facility] Blood Venous blood specimen / Unknown Venipuncture / Unknown 02/09/2025 5:16 PM EDT 02/09/2025 5:23 PM EDT Narrative [facility] - 02/09/2025 6:43 PM EDT This assay is a 4th generation assay allowing for earlier detection of HIV infection by detecting the presence of the HIV-1 p24 antigen as well as the traditional antibodies to HIV type 1 (including group O) and type 2. Use of a 4th generation assay is the current CDC recommendation for HIV screening. us Emani Quinn MD LAB BLOOD ORDERABLES Final Resul t [facility] ([facility]) [facility] [address] [place] [address], [place] [phone] from Last 3 Months or Most Recently Relevant to Health Maintenance Insurance MEDICAID - [place] Care Teams Vocational Evaluator Relationship Specialty Start Date End Date Physician, Pcp Unknown PCP - General 02/09/25
--- OUTSIDE RECORDS SUMMARY | 2025-06-21 21:23 | XMS_ITS | Clinical Summary ---
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 Vit-Fe Fumarate-FA (PNV Plus Multivitamin) 27-1 MG tablet Take 1 tablet by mouth 1 (one) time each day. take 1 tablet by oral route every day 2 Active fluticasone (Flovent) 110 MCG/ACT inhalerIndicatio ns:Mild persistent asthma, unspecified whether complicated Inhale 1 puff 2 times daily. INHALE 1 PUFF BY MOUTH TWICE DAILY 36 g 1 3 Active ARIPiprazole (Abilify) 20 MG tabletIndication s:Bipolar affective disorder, remission status unspecified (CMS/HCC) ([facility]) Take 1 tablet (20 mg) by mouth Once daily. 90 tablet 3 4 Active clonazePAM (KlonoPIN) 0.5 MG tabletIndication s:Bipolar affective disorder, remission status unspecified (CMS/HCC) ([facility]) Take 1 tablet (0.5 mg) by mouth every 12 (twelve) hours if needed for anxiety. 60 tablet 5 4 Active hydrOXYzine HCl (Atarax) 25 MG tabletIndication s:Bipolar affective disorder, remission status unspecified (CMS/HCC) ([facility]) Take 1 tablet (25 mg) by mouth every 8 (eight) hours if needed for anxiety. 45 tablet 11 4 Active lamoTRIgine (LaMICtal) 200 MG tabletIndication s:Bipolar affective disorder, remission status unspecified (CMS/HCC) ([facility]) Take 1 tablet (200 mg) by mouth every 12 (twelve) hours. 180 tablet 3 4 Active triamcinolone (Kenalog) 0.1 % cream Apply topically if needed in the morning and at bedtime (pain and swelling). 30 g 2 5 Active nystatin (Mycostatin) 850423 UNIT/GM powder Apply topically 2 times daily. 60 g 3 5 08/30/19 26 Active lamoTRIgine (LaMICtal) 25 MG tabletIndication s:Bipolar disorder in partial remission, most recent episode unspecified type (CMS/HCC) Take 1 tablet (25 mg) by mouth Once per day. 30 tablet 2 5 01/21/20 26 Active ARIPiprazole (Abilify) 10 MG tabletIndication s:Bipolar disorder in partial remission, most recent episode unspecified type (CMS/[facility]) Take 1 tablet (10 mg) by mouth Once per day. 30 tablet 5 Active albuterol 108 (90 Base) MCG/ACT inhalerIndicatio ns:Moderate persistent asthma, unspecified whether complicated INHALE 2 PUFFS BY MOUTH FOUR TIMES DAILY 18 g 1 5 Active fluticasone furoate (Arnuity Ellipta) 100 MCG/ACT inhalerIndicatio ns:Moderate persistent asthma, unspecified whether complicated Inhale 1 puff Once per day. Rinse mouth with water after use to reduce aftertaste and incidence of candidiasis. Do not swallow. 1 each 2 5 01/21/20 26 Active Active Problems Problem Noted Date Diagnosed Date Rash 01/20/2025 TILA (generalized anxiety disorder) 06/15/2023 Assessment & Plan (12/04/2023 10:44 AM EDT): Medications as above. Self-management techniques such as breathing, smart-phone apps previously reviewed. Assessment & Plan (09/12/2023 10:58 AM EDT): Medications as above. Self-management techniques such as breathing, smart-phone apps previously reviewed. Assessment & Plan (06/15/2023 9:48 AM EST): Medications as above. Self-management techniques such as breathing, smart-phone apps reviewed. Bipolar disorder 06/09/2022 Assessment & Plan (01/20/2025 1:36 PM EDT): I will re-start her on lamotrigine 25mg daily and abilify 10mg daily plan is to f/u in 3 months for titration of medication if necessary I will refer patient to [facility] psychiatry Assessment & Plan (12/04/2023 10:42 AM EDT): Generally doing OK despite life stressors (evicted, trying to find new place to live). She will continue Abilify 20 mg at bedtime, Lamictal 200 mg BID, Clonazepam 0.5 mg BID prn, Hydroxyzine 25 mg q 8 prn. Pt is not using contraception. Per [facility], neither Lamictal nor Abilify are known to be hazardous in . fI she became , would need to review use of Clonazepam and Hydroxyzine. Since this provider will be retiring, patient is now referred to new [facility] psychiatric prescriber. Patient is aware that this person will be working via [employer], and is not employed by [facility]. Patient gives permission to share protected medical information. She will also be referred for counseling. She agrees with the plan. Assessment & Plan (09/12/2023 10:58 AM EDT): Generally doing well, although interrupted sleep. Try taking the Abilify 20 mg at bedtime. Continue Lamictal 200 mg BID, Clonazepam 0.5 mg BID prn, Hydroxyzine 25 mg q 8 prn. Pt is not using contraception. Per [facility], neither Lamictal nor Abilify are known to be hazardous in . fI she became , would need to review use of Clonazepam and Hydroxyzine. On 06/15/2023 provider informed pt that I would be retiring. Meanwhile, F/U with me in 2-3 months. She agrees with the plan. 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 Recommend trying Calm carlos. Continue medications as usual: Abilify 20 mg daily, Lamictal 200 mg BID, Clonazepam 0.5 mg BID prn, Hydroxyzine 25 mg q 8 prn. Pt is not using contraception. Per [facility], neither Lamictal nor Abilify are known to be hazardous in . fI she became , would need to review use of Clonazepam and Hydroxyzine. Today 06/15/2023 provider informed pt that I would be retiring in approx 1/2 year. F/U with me in 3 months. She agrees with the plan. Assessment & Plan (12/22/2022 1:10 PM EDT): Doing better emotionally now that she has a place to live. Continue medications as usual: Abilify 20 mg daily, Lamictal 200 mg BID, Clonazepam 0.5 mg BID prn, Hydroxyzine 25 mg q 8 prn. Pt is not using contraception. Per [facility], neither Lamictal nor Abilify are known to be hazardous in . fI she became , would need to review use of Clonazepam and Hydroxyzine. F/U with me in 6-8 weeks. She agrees with the plan. Assessment & Plan (10/24/2022 11:41 AM EDT): Currently homeless, referring to [facility]. Mood stable other than appropriate response to current stressors, anxiety manageable. Continue medications as usual: Abilify 20 mg daily, Lamictal 200 mg BID, Clonazepam 0.5 mg BID prn, Hydroxyzine 25 mg q 8 prn. Pt is not using contraception. Per [facility], neither Lamictal nor Abilify are known to be hazardous in . fI she became , would need to review use of Clonazepam and Hydroxyzine. F/U with me in 6-8 weeks. She agrees with the plan. Assessment & Plan (09/12/2022 4:06 PM EDT): Currently homeless. Mood stable, anxiety manageable. Continue medications as usual. Pt is not using contraception. Per [facility], neither Lamictal nor Abilify are known to be hazardous in . fI she became , would need to review use of Clonazepam and Hydroxyzine. Again suggested that she consider looking for a low-stress part-time job. F/U with me in 6-8 weeks. She agrees with the plan. Assessment & Plan (08/04/2022 10:44 AM EST): Currently homeless with increased social stressors. Mood is still reasonably stable but anxiety is significantly worsened. Will increase to Abilify 20 mg once daily. Continue other medications. Pt is not using contraception. Per [facility], neither Lamictal nor Abilify are known to be hazardous in . fI she became , would need to review use of Clonazepam and Hydroxyzine. Reviewed that MJ may not actually be helping her anxiety -- she will consider this. We will submit documentation supporting her inability to work at this time due to mental health problems. However, reviewed with patient that this would not be a good long-term plan and she should get ready to look for a low-stress part-time job within the next couple of months. F/U with me in 6-8 weeks as already scheduled. She agrees with the plan. Assessment & Plan (06/21/2022 2:02 PM EST): Mood swings and anxiety are better controlled. Continue current medications. Pt is not using contraception. Per [facility], neither Lamictal nor Abilify are known to be hazardous in . fI she became , would need to review use of Clonazepam and Hydroxyzine. Reviewed that MJ may not actually be helping her anxiety -- she will consider this. F/U with me in 6-8 weeks. She agrees with the plan. Carpal tunnel syndrome 06/09/2022 Moderate asthma 06/09/2022 Assessment & Plan (01/20/2025 1:36 PM EDT): Patient educated to avoid triggers Allergic rhinitis due to pollen 11/23/2017 Anxiety 12/02/2016 Congenital postural scoliosis 12/02/2016 Migraine 12/02/2016 Mild persistent asthma 12/02/2016 Resolved Problems Problem Noted Date Diagnosed Date Resolved Date Depressed bipolar I disorder ([facility]/HCC) 12/02/2016 06/21/2022 Encounters Date Type Department Care Team Description 05/02/2025 Telephone [facility] [address] [place], [place] [phone] Hetal Walker MD KARRI RECALL 04/21/2025 Telephone [facility] [address], [place] [phone] Hetal Walker MD Chart Prep 04/15/2025 Patient Outreach [facility] [address] [place], [place] [phone] Hetal Walker MD Transition Of Care (Tcm) (SDOH negative, Tobacco screening negative. ) from Last 3 Months Immunizations Immunization Administration Dates Next Due DTP 08/25/1998, 6,09/27/1994,05/31,02/02/1994 HPV, Quadrivalent 02/05/2009,10/06/2008,05/01/20 08 Hep B, Adolescent or Pediatric 09/27/1994,1993,1993 Hib (HbO) 02/14/1995, 5,05/31/1994,02/02 Influenza, IIV3, injectable 04/16/2012,0 03/20/2009,05/01/2008,04/17 MMR 08/25/1998,02/14/1995 Meningococcal MCV4P [id number] 05/01/2008 Novel [id number], preservative-free 05/16/2009 OPV, Trivalent 08/25/1998, 5,05/31/1994,02/02 TD (adult), 2 Lf tetanus tox oid, preservative free, adsorbed 11/25/2004 Tdap 03/31/2017,03/20/2009 Varicella 05/01/2008,1995 Social History Tobacco Use Types Packs/Day Years Used Date Smoking Tobacco: Former Passive Smoke Exposure: Past Smokeless Tobacco: Never Tobacco Cessation:Counseling Given: Not Answered Depression Answer Date Recorded Patient Health Questionnaire-9 Score 11 12/04/2023 Patient Health Questionnaire-9 Score 11 12/04/2023 Last PHQ-9: Questionnaire Data Not on file 0 12/04/2023 Housing Stability Answer Date Recorded What is your housing situation today? I have [place] 04/15/[address] you li ve. Do you have problems with any of the following? None of the above 04/15/2025 Food Insecurity Answer Date Recorded Within the past 12 months, y ou worried that your food would run out before you got money to buy more: Never True 04/15/2025 Within the past 12 months,th e food you bought just didn't last and you didn't have enough money to get more: Never True Transportation Answer Date Recorded In the past 12 months, has l ack of transportation kept you from medical appts, meetings, work or from getting things needed for daily living? No 04/15/2025 Utilities Answer Date Recorded In the past 12 months, has t he electric, gas, oil or water company threatened to shut off services in your home? No 04/15/2025 Depression Answer Date Recorded Patient Health Questionnaire-2 Score 4 12/04/2023 Internet Access Answer Date Recorded Internet Access Q1 Yes 04/15/2025 Internet Access Q2 Not on file 04/15/2025 Comments No Sex and Gender Information Value Date Recorded Sex Assigned at Female 05/02/2022 10:31 AM EDT Legal Sex Female 10:31 AM EDT Gender Identity Female 05/02/2022 10:31 AM EDT Sexual Orientation Choose not to disclose 2021 10:31 AM EDT Last Filed Vital Signs Vital Sign Reading Time Taken Comments Blood Pressure 115/80 01/20/2025 10:37 AM EDT Pulse 75 01/20/2025 10:37 AM EDT Temperature 36.1 C (97 F) 01/20/2025 10:37 AM EDT Respiratory Rate 20 01/20/2025 10:37 AM EDT Oxygen Saturation 98% 01/20/2025 10:37 AM EDT Inhaled Oxygen Concentration - - Weight 68 kg (150 lb) 01/20/2025 10:37 AM EDT Height 144.8 cm (4' 9 ) 01/20/2025 10:37 AM EDT Body Mass Index 32.46 01/20/2025 10:37 AM EDT Plan of Treatment Upcoming Encounters Date Type Department Care Team (Late st Contact Info) Description 07/16/2025 9:15 AM EST Office Visit [facility] [address], [place] [phone] Hetal Walker MD [address] [place] [phone] 08/05/2025 9:30 AM EST Office Visit [facility] [address] [place], [place] [phone] Isis Anand MD [address] [place], [place] [phone] Health Maintenance Due Date Last Done Comments Disability Screening 1993 Hepatitis B Vaccines (3 of 3 - 3-dose series) 11/22/1994 09/27/1994, 1993, 1993 Alcohol/Substance Use Screening 2005 Family Planning (PISQ) 2008 Pneumococcal Vaccine: Pediatrics (0 to 5 Years) and At-Risk Patients (6 to 49) Years (1 of 2 - PCV) 2012 Depression Monitoring 06/04/2024 12/04/2023, 024 Cervical Cancer Screening 07/14/2024 HPV/Cotest 07/14/2024 Pap Smear 07/14/2024 07/14/2021, 07/14/2021 COVID-19 Vaccine ( season) 2025 Influenza Vaccine (#1) 2025 2, 05/16/2009, 03/20/2009, Additional history exists Tobacco Screening 01/20/2026 01/20/2025 SDOH Screening 04/15/2026 04/15/2025 DTaP/Tdap/Td Vaccines (8 - Td or Tdap) 03/31/2027 03/31/2017, 03/20/2009, 11/25/2004, Additional history exists Zoster Vaccines (1 of 2) 11/10/2043 RSV Patients and Patients Aged 60 years or older (1 - 1-dose 75+ series) 2068 HIB Vaccines Completed 02/14/1995, 09/01, 05/31/1994, Additional history exists IPV Vaccines Completed 08/25/1998, 09/01, 05/31/1994, Additional history exists Meningococcal Vaccine Aged Out 05/01/2008 No lorin abundio eligible based on patient's age to complete this topic HPV Vaccines Completed 02/05/2009, 04/0 12/2008, 05/01/2008 HIV Screening Completed 07/14/2021, 06/24/2020 Hepatitis C Screening Completed 07/14/2021, 020 Hepatitis A Vaccines Aged Out No long er eligible based on patient's age to complete this topic Meningococcal B Vaccine Aged Out No l onger eligible based on patient's age to complete this topic RSV under 20 months Aged Out No longe r eligible based on patient's age to complete this topic Rotavirus Vaccines Aged Out No longer eligible based on patient's age to complete this topic Procedures Procedure Name Priority Date/Time Associated Diagnosis Comments ZZZ HISTORICAL HEPATITIS C AB W/REFL TO HCV RNA, QN, PCR Routine 07/14/2021 11:17 AM EST HIV 1/2 ANTIGEN/ANTIBODY, FOURTH GENERATION W/RFL Routine 07/14/2021 11:17 AM EST THINPREP IMAGING PAP WITH REFLEX TO HPV MRNA E6/E7 Routine 07/14/2021 10:53 AM EST from Last 3 Months or Most Recently Relevant to Health Maintenance Results * HEPATITIS C AB W/REFL TO HCV RNA, QN, PCR (07/14/2021 11:17 AM EST) HEPATITIS C ANTIBODY NON-REACT FEMI NON-REACT FEMI [facility] INDEX 0.01 <1.00 [facility] Comment: HCV antibody was non-reactive. There is no laboratory evidence of HCV infection. In most cases, no further action is required. However, if recent HCV exposure is suspected, a test for HCV RNA (test code 84224) is suggested. For additional information please refer to http://[employer]/faq/VDK64l4 (This link is being provided for informational/ educational purposes only.) 07/14/2021 11:1 7 AM EST Bria Braxton MD HISTORICAL/NON ORDERABLE L ABS Final Result Performing Organization Address [facility] Co de Phone Number [facility] [address] [place] [address], * HIV 1/2 ANTIGEN/ANTIBODY,FOURTH GENERATION W/RFL (07/14/2021 11:17 AM EST) HIV-1/2 ANTIGEN AND ANTIBODIES, 4TH GENERATION W/ REFLEX NON-REACT FEMI NON-REACT FEMI [facility] Comment: HIV-1 antigen and HIV-1/HIV-2 antibodies were not detected. There is no laboratory evidence of HIV infection. PLEASE NOTE: This information has been disclosed to you from records whose confidentiality may be protected by state law. If your state requires such protection, then the state law prohibits you from making any further disclosure of the information without the specific written consent of the person to whom it pertains, or as otherwise permitted by law. A general authorization for the release of medical or other information is NOT sufficient for this purpose. For additional information please refer to http://[employer]/faq/WHO569 (This link is being provided for informational/ educational purposes only.) The performance of this assay has not been clinically validated in patients less than 2 years old. 07/14/2021 11:1 7 AM EST Bria Braxton MD LAB BLOOD ORDERABLES Final Result Performing Organization Address [facility] Co de Phone Number [facility] [address] [place] [address], [place] * THINPREP TIS PAP W/REFL HPV mRNA E6/E7 (07/14/2021 10:53 AM EST) Clinical Information: None given [facility] COMMENT SEE COMMENT [facility] Comment: EXPLANATORY NOTE: The Pap is a screening test for cervical cancer. It is not a diagnostic test and is subject to false negative and false positive results. It is most reliable when a satisfactory sample, regularly obtained, is submitted with relevant clinical findings and history, and when the Pap result is evaluated along with historic and current clinical information. Comment: This Pap test has been evaluated with computer assisted technology. [facility] Coat Fitter : SEE COMMENT [facility] Comment: [place], CT(ASCP) CT screening location: [place] [address] Interpretation/R esult: Negative for intraepithelial lesion or malignancy. [facility] LMP: NONE [facility]IVEN [facility] Prev. BX: NONE [facility]IV[facility] Prev. PAP: NONE [facility]IVEN [facility] SOURCE: None given [facility] Statement Of Adequacy: SEE COMMENT [facility] Comment: Satisfactory for evaluation. Endocervical/transformation zone component present. Age and/or menstrual status not provided 07/14/2021 10:5 3 AM EST us Bria Braxton MD LAB PATHOLOGY ORDERABLES F inal Result [facility] [address] from Last 3 Months or Most Recently Relevant to Health Maintenance Insurance C3 Care Teams Lithographic Proofer Relationship Specialty Start Date End Date Hetal Walker MD [address] [place] [id number] PCP - General Family Medicine 09/12/19 Jaron Nava FNP [address] [place] [id number] Nurse Practitioner Family Medicine 06/05/23
[2025-06-21 23:22] VITALS: BP 104/56; PULSE 73; RESP 18; TEMP 36.7; O2SAT 99
[2025-06-21] MEDS: Lidocaine 4 % Patch ADH..PATCH 1 PATCH TRANSDERMA (23:23)
[2025-06-21 23:29] VITALS: BP 104/56; PULSE 73; RESP 18; TEMP 36.7; O2SAT 99
== END 2025-06-21 23:29 | disposition home or self-care (01) ==
PROVIDERS: Emergency Provider Student in an Organized Health Care Education/Training Program
DX: M25.511 Pain in right shoulder (principal); M54.6 Pain in thoracic spine; Z91.81 History of falling
CPT/HCPCS: 71101; 99283; 99284